=== PATIENT | male | born 1955 | race Caucasian/White ===

== ENCOUNTER 2018-05-14 09:25 | Emergency (ER) | payer OTHER ==
[2018-05-14] MEDS ORDERED: NA CHLORIDE 0.9% 1,000 ML ONE (10:02)
[2018-05-14] MEDS ORDERED: BISACODYL 10 MG RECTAL SUPP ONE (10:02)
[2018-05-14] MEDS ORDERED: LACTULOSE 20 GM/30 ML UCUP ONE (10:03)
[2018-05-14 10:14] LABS: Absolute Lymphocytes (CBC) 1.4 K/uL (0.7-4.9); Absolute Monocytes 0.6 K/uL (0.1-1.3); Absolute Neutrophil 5.1 K/uL (1.8-8.0); Basophils % 0.5 % (0-1.3); Eosinophils % 1.1 % (0-4.4); Hematocrit 42.8 % (39.6-49.0); Lymphocytes % 19.2 % (15.3-44.8); MPV 7.7 fL (7.6-11.3); Monocytes % 8.3 % (3.3-12.3); RBC Red Blood Cell Count 5.01 M/uL (4.33-5.43)
[2018-05-14 10:20] LABS: Albumin 3.8 g/dL (3.4-5.0); Bilirubin Direct 0.2 mg/dL (0-0.2); Bilirubin Total 0.5 mg/dL (0.2-1.0); Potassium 3.8 mmol/L (3.5-5.1)
--- NOTE | 2018-05-14 11:36 | RAD REPORT ---
EXAM DESCRIPTION: CT - Abdomen Pelvis Wo Contrast - 05/14/2018 11:25 am CLINICAL HISTORY: Abdominal pain, constipation, pain medication COMPARISON: None. TECHNIQUE: Axial [address] imaging of the abdomen and pelvis was performed without IV contrast. No IV contrast was given because of allergy, abnormal renal function, patient refusal or physician re quest. Oral contrast was given. All CT scans are performed using dose optimization technique as appropriate and may include automated exposure control or mA/KV adjustment according to patient size. FINDINGS: No suspicious findings in the lung bases. The liver, spleen and pancreas show no suspicious findings on non-contrast imaging. Gallbladder and b iliary tree are also without suspicious finding. No hydronephrosis or suspicious renal mass. Punctate 1 mm calyx calcification noted left kidney. No s ignificant adrenal finding. Isodense renal masses and pyelonephritis cannot be excluded in the absenc e of IV contrast. The urinary bladder is without significant finding. Prostate gland is prominent. No invasion into adjacent structures. No gastric dilatation or wall thickening. No acute small bowel finding. Fatty ileocecal valve is note d. There is no appendicitis. No abnormal retained stool volume in the colon. There is mild circumfere ntial wall thickening of the distal rectum. This is nonspecific. A mild proctitis would be possible. This may be artifact of incomplete distention. The perirectal fat shows no acute finding. No free air, free fluid or inflammatory stranding. No mass or bulky lymphadenopathy. Fat filled ingu inal hernias are present bilaterally. There is a small fat only umbilical hernia. No suspicious bony findings. IMPRESSION: No constipation or abnormal retained stool volume. [place] of the distal rectum are mildly prominent. A mild proctitis would be possible. The surrounding fat shows no acute component. Punctate left renal calyx calculi. No acute finding. Isodense masses and pyelonephritis are not ex cluded on stone protocol imaging. Full assessment is limited is the absence of IV contrast.
[2018-05-14] MEDS ORDERED: METRONIDAZOLE 500mg IVPB 500 MG/100 ML BAG IV ONE (11:51)
[2018-05-14] MEDS ORDERED: CIPROFLOXACIN 400mg IV 400 MG/200 ML BAG IV ONE (11:51)
--- NOTE | 2018-05-14 11:56 | EDPHYS ---
Physician Documentation [facility] Name: Edinson Rowell Age: 63 yrs Sex: Male : 1955 Arrival Date: 05/14/2018 Time: 09:28 Bed 20 Private MD: ED Physician Santy Zheng HPI: 05/14 09:40 This 63 yrs old Male presents to ER via Unassigned with complaints of alexa Constipation. 09:40 The patient presents with abdominal pain in the lower abdomen, right lower quadrant, in alexa the left lower quadrant. Onset: The symptoms/episode began/occurred 3 day(s) ago. The symptoms do not radiate. Associated signs and symptoms: none. The symptoms are described as crampy, dull. Severity of pain: At its worst the pain was mild moderate in the emergency department the pain is unchanged. The patient has experienced similar episodes in the past, a few times. Historical: - Allergies: 09:42 PENICILLINS; ss 09:42 Codeine; ss 09:42 tramadol; ss - PMHx: 09:42 Hypertension; constipation; Hypothyroidism; ss - Immunization history:: Adult Immunizations up to date. - Social history:: Smoking status: Patient/guardian denies using tobacco. - Family history:: not pertinent. - Ebola Screening: : Patient denies exposure to infectious person Patient denies travel to an Ebola-affected area in the 21 days before illness onset. ROS: 09:40 Constitutional: Negative for fever, chills, and weight loss, Eyes: Negative for injury, alexa pain, redness, and discharge, ENT: Negative for injury, pain, and discharge, Neck: Negative for injury, pain, and swelling, Cardiovascular: Negative for chest pain, palpitations, and edema, Respiratory: Negative for shortness of breath, cough, wheezing, and pleuritic chest pain, Back: Negative for injury and pain, : Negative for injury, bleeding, discharge, and swelling, MS/Extremity: Negative for injury and deformity, Skin: Negative for injury, rash, and discoloration, Neuro: Negative for headache, weakness, numbness, tingling, and seizure, Psych: Negative for depression, anxiety, suicide ideation, homicidal ideation, and hallucinations, Allergy/Immunology: Negative for hives, rash, and allergies, Endocrine: Negative for neck swelling, polydipsia, polyuria, polyphagia, and marked weight changes, Hematologic/Lymphatic: Negative for swollen nodes, abnormal bleeding, and unusual bruising. 09:40 Abdomen/GI: Positive for abdominal pain, constipation, of the right lower quadrant and left lower quadrant. Exam: 09:40 Constitutional: This is a well developed, well nourished patient who is awake, alert, alexa and in no acute distress. Head/Face: Normocephalic, atraumatic. Eyes: Pupils equal round and reactive to light, extra-ocular motions intact. Lids and lashes normal. Conjunctiva and sclera are non-icteric and not injected. Cornea within normal limits. Periorbital areas with no swelling, redness, or edema. ENT: Nares patent. No nasal discharge, no septal abnormalities noted. Tympanic membranes are normal and external auditory canals are clear. Oropharynx with no redness, swelling, or masses, exudates, or evidence of obstruction, uvula midline. Mucous membranes moist. Neck: Trachea midline, no thyromegaly or masses palpated, and no cervical lymphadenopathy. Supple, full range of motion without nuchal rigidity, or vertebral point tenderness. No Meningismus. Chest/axilla: Normal chest wall appearance and motion. Nontender with no deformity. No lesions are appreciated. Cardiovascular: Regular rate and rhythm with a normal S1 and S2. No gallops, murmurs, or rubs. Normal PMI, no JVD. No pulse deficits. Respiratory: Lungs have equal breath sounds bilaterally, clear to auscultation and percussion. No rales, rhonchi or wheezes noted. No increased work of breathing, no retractions or nasal flaring. Back: No spinal tenderness. No costovertebral tenderness. Full range of motion. Skin: Warm, dry with normal turgor. Normal color with no rashes, no lesions, and no evidence of cellulitis. MS/ Extremity: Pulses equal, no cyanosis. Neurovascular intact. Full, normal range of motion. Neuro: Awake and alert, GCS 15, oriented to person, place, time, and situation. Cranial nerves II-XII grossly intact. Motor strength 5/5 in all extremities. Sensory grossly intact. Cerebellar exam normal. Normal gait. Psych: Awake, alert, with orientation to person, place and time. Behavior, mood, and affect are within normal limits. 09:40 Abdomen/GI: Inspection: abdomen appears normal, Bowel sounds: normal, Palpation: moderate abdominal tenderness, in the right lower quadrant and left lower quadrant, Liver: no appreciated palpable abnormalities, Hernia: not appreciated. Vital Signs: 09:42 BP 164 / 83; Pulse 89; Resp 15; Temp 98.5(O); Pulse Ox 99% on R/A; Weight 99.79 kg; ss Height 5 ft. 9 in. (175.26 cm); Pain 1/10; 11:10 BP 152 / 85; Pulse 91; Resp 18; Pulse Ox 96% on R/A; Pain 1/10; em 12:30 BP 152 / 92; Pulse 87; Resp 18; Pulse Ox 99% on R/A; em 14:19 BP 151 / 97; Pulse 79; Resp 18; Pulse Ox 99% on R/A; em 09:42 Body Mass Index 32.49 (99.79 kg, 175.26 cm) ss MDM: 09:30 Patient medically screened. [facility] 09:42 Data reviewed: vital signs, nurses notes, lab test result(s), radiologic studies, CT alexa scan. 03 09:38 Order name: Basic Metabolic Panel; Complete Time: 10:57 [facility] 05/14 09:38 Order name: CBC with Diff; Complete Time: 10:57 [facility] 05/14 09:38 Order name: Creatinine for Radiology; Complete Time: 10:57 [facility] 05/14 09:38 Order name: Hepatic Function; Complete Time: 10:57 [facility] 05/14 09:38 Order name: Lipase; Complete Time: 10:57 [facility] 05/14 09:38 Order name: CT Abd/Pelvis - Without Cont: gastrograffin only; Complete Time: 11:37 [facility] 05/14 11:38 Interpretation: Abnormal. [facility] 05/14 09:38 Order name: IV Saline Lock; Complete Time: 09:48 [facility] 05/14 09:38 Order name: Labs collected and sent; Complete Time: 09:48 [facility] Administered Medications: 10:02 Drug: NS 0.9% 1000 ml Route: IV; Rate: 1 bolus; Site: right antecubital; em 11:00 Follow up: IV Status: Completed infusion; IV Intake: 1000ml em 10:02 Drug: Lactulose 45 grams Volume: 45 ml; Route: PO; em 11:00 Follow up: Response: No adverse reaction; Marked relief of symptoms em 10:02 Drug: Dulcolax Suppository 10 mg Route: NM; em 11:00 Follow up: Response: No adverse reaction em 12:10 Drug: Flagyl 500 mg Volume: 100 ml; Route: IVPB; Rate: 200 ml/hr; Infused Over: 30 em mins; Site: right antecubital; 13:10 Follow up: Response: No adverse reaction; IV Status: Completed infusion; IV Intake: em 100ml 13:10 Drug: Cipro 400 mg Volume: 200 ml; Route: IVPB; Infused Over: 60 mins; Site: right em antecubital; 14:21 Follow up: Response: No adverse reaction; IV Status: Completed infusion; IV Intake: em 200ml Disposition: 05/14/18 11:56 Discharged to Home. Impression: Constipation, Left sided colitis - proctitis, Abdominal tenderness. - Condition is Stable. - Discharge Instructions: Abdominal Pain, Adult, Constipation, Adult, How to Take a Sitz Bath, Constipation, Adult, [id number], Abdominal Pain, Adult, [id number], Colitis. - Prescriptions for Colace 100 mg Oral Tablet - take 1 tablet by ORAL route every 12 hours; 14 tablet. Flagyl 500 mg Oral Tablet - take 1 tablet by ORAL route every 8 hours for 7 days; 21 tablet. Cipro 500 mg Oral Tablet - take 1 tablet by ORAL route every 12 hours for 7 days; 14 tablet. - Medication Reconciliation Form, Thank You Letter, Antibiotic Education, Prescription Opioid Use form. - Follow up: Private Physician; When: 2 - 3 days; Reason: Recheck today's complaints, Continuance of care, Re-evaluation by your physician. Follow up: Megha Miranda; When: 1 - 2 days; Reason: Recheck today's complaints, Re-evaluation by your physician. - Problem is new. - Symptoms have improved. Signatures: Dispatcher [employer] Santy Lee MD MD cha Munoz, Edgar, HIGHWAY MAINTENANCE WORKER HIGHWAY MAINTENANCE WORKER Araceli Burroughs RN RN ss Corrections: (The following items were deleted from the chart) 14:22 11:56 05/14/2018 11:56 Discharged to Home. Impression: Constipation; Left sided colitis em - proctitis; Abdominal tenderness. Condition is Stable. Discharge Instructions: Constipation, Adult, Constipation, Adult, [id number], How to Take a Sitz Bath, Colitis. Prescriptions for Colace 100 mg Oral Tablet - take 1 tablet by ORAL route every 12 hours; 14 tablet, Flagyl 500 mg Oral Tablet - take 1 tablet by ORAL route every 8 hours for 7 days; 21 tablet, Cipro 500 mg Oral Tablet - take 1 tablet by ORAL route every 12 hours for 7 days; 14 tablet. and Forms are Medication Reconciliation Form, Thank You Letter, Antibiotic Education, Prescription Opioid Use. Follow up: Private Physician; When: 2 - 3 days; Reason: Recheck today's complaints, Continuance of care, Re-evaluation by your physician. Follow up: Megha Miranda; When: 1 - 2 days; Reason: Recheck today's complaints, Re-evaluation by your physician. Problem is new. Symptoms have improved. alexa
--- NOTE | 2018-05-14 11:56 | ER ---
Nurse's Notes [facility] Name: Edinson Rowell Age: 63 yrs Sex: Male : 1955 Arrival Date: 05/14/2018 Time: 09:28 Bed 20 Private MD: Diagnosis: Constipation;Left sided colitis-proctitis;Abdominal tenderness Presentation: 05/14 09:30 Presenting complaint: Patient states: Pt reports constipation x 3 days. Pt recently had ss oral/ sinus surgery and has been taking hydrocodone. Last BM was reportedly 3 days ago. Transition of care: patient was not received from another setting of care. Onset of symptoms was April 12, 2018. Risk Assessment: Do you want to hurt yourself or someone else? Patient reports no desire to harm self or others. Initial Sepsis Screen: Does the patient meet any 2 criteria? No. Patient's initial sepsis screen is negative. Does the patient have a suspected source of infection? No. Patient's initial sepsis screen is negative. Care prior to arrival: None. 09:30 Method Of Arrival: Ambulatory 09:30 Acuity: KENNETH 3 ss Historical: - Allergies: 09:42 PENICILLINS; ss 09:42 Codeine; ss 09:42 tramadol; ss - PMHx: 09:42 Hypertension; constipation; Hypothyroidism; ss - Immunization history:: Adult Immunizations up to date. - Social history:: Smoking status: Patient/guardian denies using tobacco. - Family history:: not pertinent. - Ebola Screening: : Patient denies exposure to infectious person Patient denies travel to an Ebola-affected area in the 21 days before illness onset. Screenin:35 Abuse screen: Denies threats or abuse. Nutritional screening: No deficits noted. em Tuberculosis screening: No symptoms or risk factors identified. Fall Risk None identified. Assessment: 09:45 General: Appears in no apparent distress. uncomfortable, Behavior is calm, cooperative, em anxious. Pain: Complains of pain in left lower quadrant and right lower quadrant Pain currently is 1 out of 10 on a pain scale. Quality of pain is described as crampy, pressure. Neuro: Level of Consciousness is awake, alert, obeys commands, Oriented to person, place, time, situation. Cardiovascular: Capillary refill < 3 seconds Patient's skin is warm and dry. Respiratory: Airway is patent Respiratory effort is even, unlabored, Respiratory pattern is regular, symmetrical. GI: Abdomen is round Last BM was May 11, 2018. Bowel sounds present X 4 quads. Abd is soft and non tender X 4 quads. Reports constipation, Patient currently denies nausea, vomiting. Derm: Skin is intact, is healthy with good turgor, Skin is pink, warm \T\ dry. Musculoskeletal: Range of motion: intact in all extremities. 09:48 General: The previous assessment is accurate, call light remains within reach. . ss 10:30 Reassessment: ambulated to restroom, will attempt to have BM. em 11:02 Reassessment: ambulated to restroom, pt reports having a small BM, pending CT. em 12:00 Reassessment: Patient appears in no apparent distress at this time. Patient and/or em family updated on plan of care and expected duration. Pain level reassessed. Patient is alert, oriented x 3, equal unlabored respirations, skin warm/dry/pink. pending completion of IV ABX Patient states feeling better. 13:00 Reassessment: Patient appears in no apparent distress at this time. Patient and/or em family updated on plan of care and expected duration. Pain level reassessed. Patient is alert, oriented x 3, equal unlabored respirations, skin warm/dry/pink. Patient states feeling better. 13:58 Reassessment: ambulated to restroom, has had 4 small BM, pending completion of IV ABX. em Vital Signs: 09:42 BP 164 / 83; Pulse 89; Resp 15; Temp 98.5(O); Pulse Ox 99% on R/A; Weight 99.79 kg; Height 5 ft. 9 in. (175.26 cm); Pain 1/10; 11:10 BP 152 / 85; Pulse 91; Resp 18; Pulse Ox 96% on R/A; Pain 1/10; em 12:30 BP 152 / 92; Pulse 87; Resp 18; Pulse Ox 99% on R/A; em 14:19 BP 151 / 97; Pulse 79; Resp 18; Pulse Ox 99% on R/A; em 09:42 Body Mass Index 32.49 (99.79 kg, 175.26 cm) ED Course: 09:28 Patient arrived in ED. as 09:30 Santy Zheng MD is Attending Physician. alexa 09:30 Kelvin Copeland LVN is Primary Nurse. em 09:40 Patient has correct armband on for positive identification. Bed in low position. Call em light in reach. Side rails up X2. Adult w/ patient. Pulse ox on. NIBP on. 09:41 Triage completed. ss 09:42 Arm band placed on right wrist. ss 09:45 Initial lab(s) drawn, by me, sent to lab. Inserted saline lock: 20 gauge in right em antecubital area, using aseptic technique. Blood collected. 11:24 CT completed. Patient tolerated procedure well. Patient moved back from CT. bq 11:24 CT Abd/Pelvis - Without Cont: gastrograffin only In Process Unspecified. EDMS 11:55 Megha Miranda MD is Referral Physician. alexa 14:20 No provider procedures requiring assistance completed. IV discontinued, intact, em bleeding controlled, No redness/swelling at site. Pressure dressing applied. Administered Medications: 10:02 Drug: NS 0.9% 1000 ml Route: IV; Rate: 1 bolus; Site: right antecubital; em 11:00 Follow up: IV Status: Completed infusion; IV Intake: 1000ml em 10:02 Drug: Lactulose 45 grams Volume: 45 ml; Route: PO; em 11:00 Follow up: Response: No adverse reaction; Marked relief of symptoms em 10:02 Drug: Dulcolax Suppository 10 mg Route: IA; em 11:00 Follow up: Response: No adverse reaction em 12:10 Drug: Flagyl 500 mg Volume: 100 ml; Route: IVPB; Rate: 200 ml/hr; Infused Over: 30 em mins; Site: right antecubital; 13:10 Follow up: Response: No adverse reaction; IV Status: Completed infusion; IV Intake: em 100ml 13:10 Drug: Cipro 400 mg Volume: 200 ml; Route: IVPB; Infused Over: 60 mins; Site: right em antecubital; 14:21 Follow up: Response: No adverse reaction; IV Status: Completed infusion; IV Intake: em 200ml Intake: 11:00 IV: 1000ml; Total: 1000ml. em 13:10 IV: 100ml; Total: 1100ml. em 14:21 IV: 200ml; Total: 1300ml. em Outcome: 11:56 Discharge ordered by . alexa 14:20 Discharged to home ambulatory. em 14:20 Condition: good 14:20 Discharge instructions given to patient, family, Instructed on discharge instructions, follow up and referral plans. no drinking with medication, medication usage, Demonstrated understanding of instructions, follow-up care, medications, Prescriptions given X 3. 14:22 Patient left the ED. em Signatures: Dispatcher [employer] EDSanty Wilson MD MD cha Quilty, Betty bq Munoz, Edgar, SERVICE PORTER SERVICE PORTER em Dayna Hernandez Shelby, BLAKE RN ss Corrections: (The following items were deleted from the chart) 11:18 11:02 Reassessment: ambulated to restroom, pt reports having a small BM, pending CT em em
== END 2018-05-14 14:22 | disposition home or self-care (01) ==
LOC: ER 09:25
DX: K59.00 Constipation, unspecified (principal); K51.50 Left sided colitis without complications; K62.89 Other specified diseases of anus and rectum; I10 Essential (primary) hypertension; Z88.0 Allergy status to penicillin; Z88.5 Allergy status to narcotic agent; Z88.6 Allergy status to analgesic agent
CPT/HCPCS: 36415; 74176; 80048; 80076; 83690; 85025; 96361; 96365; 96367; 99284; J0744; J7030

== ENCOUNTER 2022-08-26 13:30 | Emergency (ER) | payer OTHER ==
--- OUTSIDE RECORDS SUMMARY | 2022-08-26 13:34 | XMS REPORT | Continuity of Care Document ---
:1955 Author Organization [facility] t Address [address] [facility] [address] [place] [id number] Care Team Providers Name Role Phone Mckayla Cline MD Primary Care Physician [phone] Salomón URIBE, Jeannette Adams Attending Clinician MCKAYLA CLINE Attending Clinician Unavailable GIOVANY MORALES Attending Clinician Unavailable Mckayla Cline MD Attending Clinician [phone] Con Poole MD Attending Clinician MCKAYLA CLINE Attending Clinician Unavailable CHRIS MCCLURE Attending Clinician Unavailable Giovany Morales MD Attending Clinician Gerardo Bateman MD Attending Clinician Payers Payer Name Policy Type Policy Number Effective Date Expiration Date S sam MEDICARE PART A [id number] 2022 \T\ B - MEDICARE 00:00:00 MEDICARE A B [id number] 2018 00:00:00 [employer] INDEMNITY [id number] 2018 NON CONTR 00:00:00 Problems Condition Condition Condition Status Onset Resolution Last Treating Co mments Source Name Details Category Date Date Treatment Clinician Date Overweight Overweight Disease Active [facility] 7-21 [facility] 00:00: of 00 Medicin e Chronic Chronic Disease Active 2018-03 [facility] sinusitis sinusitis 0-19 [facility] 00:00: of 00 Medicin e Post-traum Post-traum Disease Active Justina hanley [facility] 5-15 [place] osteoarthr osteoarthr 00:00: of itis of itis of 00 Medicin left ankle left ankle e Post-traum Post-traum Disease Active Justina humberto [facility] 5-15 [place] osteoarthr osteoarthr 00:00: of itis of itis of 00 Medicin left ankle left ankle e Essential Essential Disease Active [facility] hypertensi hypertensi 4-27 [facility] on on 00:00: of 00 Medicin e Family Family Disease Active [facility] history of history of 9-29 [facility] llege nonmelanom nonmelanom 00:00: of a skin a skin 00 Medicin cancer cancer e Family Family Disease Active [facility] history of history of 9-29 Co llege nonmelanom nonmelanom 00:00: of a skin a skin 00 Medicin cancer cancer e Left ankle Left ankle Disease Active Justina hanley pain pain 5-10 [place] 00:00: of 00 Medicin e Sleep Sleep Disease Active [facility] apnea apnea 4-19 [place] 00:00: of 00 Medicin e Mixed Mixed Disease Active [facility] hyperlipid hyperlipid Co llege emia emia of Medicin e HYPOTHYROI HYPOTHYROI Disease Active [facility] [employer] of Medicin e Allergies, Adverse Reactions, Alerts Allergy Allergy Status Severity Reaction(s) Onset Inactive Treating Comm ents Source Name Type Date Date Clinician Tramadol Propensi Active Rash [facility] ty to 5-30 College adverse 00:00: of reaction 00 Medicin s to e drug Codeine Propensi Active [facility] Sulfate ty to 2 College adverse 00:00: of reaction 00 Medicin s to e drug Penicill Propensi Active Anaphylaxis Justina hanley ins ty to 219 College adverse 00:00: of reaction 00 Medicin s to e drug Social History Social Habit Start Date Stop Date Quantity Comments Source Exposure to Not sure [facility] Colle ehsan SARS-CoV-2 (event) of Med icine History of tobacco Cigarette Smoker [facility] use of Medicine History [facility] ge Alcohol Frequency of Medi cine History [facility] ge Alcohol Std Drinks of Med icine History [facility] Alcohol Binge of Medicine Gender identity [facility] Alcohol intake 2022-08-25 2022-08-25 .29 /d [facility] Col lege 00:00:00 00:00:00 of Medicine History of Social 2022-01-12 2022-01-12 [facility] function 00:00:00 00:00:00 of Medicine Tobacco use and 2021-09-23 2021-09-23 Smokeless tobacco [facility] exposure 00:00:00 00:00:00 non-user of Medicine Cigarette 2021-09-23 2021-09-23 [facility] pack-years 00:00:00 00:00:00 of Medicine Alcohol Comment 2020-10-28 2020-10-28 very occasional [facility] [employer] 00:00:00 00:00:00 use of Medicine Sex [birth year] [facility] 00[facility] Smoking Status Start Date Stop Date Source Tobacco smoking consumption [facility] Never smoked tobacco [facility] ege of Medicine Medications Ordered Filled Start Stop Current Ordering Indication Dosage Frequency Signature Comments Components Source Medication Medication Date Date Medication? Clinician (SIG) Name Name methylPREDN 2022- No [id number] 80mg 80 mg, [facility] ISolone 08-25 9100 [facility] acetate 18:13: 18:13 cular, of (DEPO-MEDRO 00 :00 Once PRN Medi [place] L) 40 MG/ML Procedure, e injection 1 dose, 80 mg Starting on 08/25/22 at 1313, Until 08/25/22 at 1313 bupivacaine 2022- No [id number] 2mL 2 mL, [facility] (MARCAINE) 08-25 9100 [facility] 0.5 % 18:13: 18:13 cular, of injection 2 00 :00 Once PRN Medi [place] mL Procedure, e 1 dose, Starting on 08/25/22 at 1313, Until 08/25/22 at 1313 lidocaine 2022- No [id number] 2mL 2 mL, [facility] (preservati 08-25- 9100 [facility] C ollege ve-free) 1 18:13: 18:13 cular, of % injection 00 :00 Once PRN Medi [place] 2 mL Procedure, e 1 dose, Starting on Wed08/25/22 at 1313, Until Wed08/25/22 at 1313 aspirin 81 Yes 81mg Take 1 [facility] tablet 6-20 Tablet by Colle ge 10:55: mouth of 11 daily. Medicin e docusate Yes 100mg Take 1 [facility] sodium 6-20 Capsule by [place] (COLACE) 10:55: mouth two of 100 MG 11 times Medicin capsule daily. e Multiple Yes Take by [facility] Vitamins-Mi 6-20 mouth. [facility] nerals 10:55: of (CENTRUM 11 Medicin ADULTS OR) e meloxicam Yes 1 daily [facility] (MOBIC) 15 6-07 with food [facility] MG tablet 00:00: or milk. of 00 Medicin e cyclobenzap Yes 10mg Take 1 [facility] rine 2-22 Tablet by [place] (FLEXERIL) 00:00: mouth 3 of 10 MG 00 times Medicin tablet daily as e needed for Muscle spasms. lorazepam Yes .5mg Take 1 [facility] (ATIVAN) 1-18 [facility] of 00 every 12 Medicin hours as e needed for Anxiety. tadalafil Yes Take 1 [facility] (CIALIS) 10 1-18 pill at Colle ge MG tablet 00:00: least 60 of 00 minutes Medicin prior to e sexual activity aspirin 81 2021-03 Yes 81mg Take 81 mg [facility] MG tablet 1-07 by mouth Colleg e 12:48: daily. of 43 Medicin e docusate 2021-03 Yes 100mg Take 100 [facility] sodium 1-07 mg by [place] (COLACE) 12:48: mouth two of 100 MG 43 times Medicin capsule daily. e SUPER B 2021-03 Yes Take by [facility] COMPLEX/C 1-07 mouth. College OR 12:48: of 43 Medicin e Multiple 2021-03 Yes Take by [facility] Vitamins-Mi 1-07 mouth. [place] n[facility] 12:48: of [facility] Medicin ADULTS OR) e SUPER B 2021-03 Yes Take by [facility] COMPLEX/C 1-07 mouth. College OR 12:48: of 43 Medicin e metronidazo 2021-0 Yes [id number] Apply [facility] le 9-21 topically [place] (METROCREAM 00:00: to face of ) 0.75 % 00 twice a Medicin cream day as e needed metronidazo 2021-0 Yes [id number] Apply [facility] le 9-21 topically [place] (METROCREAM 00:00: to face of ) 0.75 % 00 twice a Medicin cream day as e needed metronidazo 2021-0 Yes [id number] Apply [facility] le 9-21 topically [place] (METROCREAM 00:00: to face of ) 0.75 % 00 twice a Medicin cream day as e needed aspirin 81 2021-0 Yes 81mg Take 81 mg [facility] MG tablet 7-19 by mouth Colleg e 07:56: daily. of 36 Medicin e docusate 0 Yes 100mg Take 100 [facility] sodium 7-19 mg by College (COLACE) 07:56: mouth two of 100 MG 36 times Medicin capsule daily. e SUPER B 0 Yes Take by [facility] COMPLEX/C 7-19 mouth. College OR 07:56: of 36 Medicin e Multiple 0 Yes Take by [facility] Vitamins-Mi 7-19 mouth. [place] nerals 07:56: of ([facility] 36 Medicin ADULTS OR) e aspirin 81 2021-0 Yes 81mg Take 81 mg [facility] MG tablet 7-19 by mouth Colleg e 07:56: daily. of 36 Medicin e docusate 0 Yes 100mg Take 100 [facility] sodium 7-19 mg by College (COLACE) 07:56: mouth two of 100 MG 36 times Medicin capsule daily. e SUPER B 2021-0 Yes Take by [facility] COMPLEX/C 7-19 mouth. College OR 07:56: of 36 Medicin e Multiple 2021-0 Yes Take by [facility] Vitamins-Mi 7-19 mouth. Colleg e nerals 07:56: of ([facility] 36 Medicin ADULTS OR) e aspirin 81 0 Yes 81mg Take 81 mg [facility] MG tablet 7-19 by mouth [facility] 07:56: daily. of 36 Medicin e docusate 0 Yes 100mg Take 100 [facility] sodium 7-19 mg by [place] (COLACE) 07:56: mouth two of 100 MG 36 times Medicin capsule daily. e SUPER B 0 Yes Take by [facility] COMPLEX/C 7-19 mouth. College OR 07:56: of 36 Medicin e Multiple 0 Yes Take by [facility] Vitamins-Mi 7-19 mouth. [facility] moser nerals 07:56: of (CENTRUM 36 Medicin ADULTS OR) e olmesartan- 0 Yes TAKE 1 [facility] hydrochloro 7-19 TABLET BY Col lege thiazide 00:00: MOUTH of (BENICAR 00 EVERY DAY Medici n HCT) 40-25 e MG per tablet levothyroxi 0 Yes TAKE 1 [facility] ne 7-19 TABLET BY [place] (SYNTHROID) 00:00: MOUTH of 175 MCG 00 EVERY DAY Medicin tablet e escitalopra 0 Yes 10mg Take 1 [facility] (LEXAPRO) 7-19 Tablet by Col [facility]ge 10 MG 00:00: mouth of tablet 00 daily. Medicin e olmesartan- 0 Yes TAKE 1 [facility] hydrochloro 7-19 TABLET BY [facility] thiazide 00:00: MOUTH of (BENICAR 00 EVERY DAY Medici n HCT) 40-25 e MG per tablet levothyroxi 2021-0 Yes TAKE 1 [facility] ne 7-19 TABLET BY [place] (SYNTHROID) 00:00: MOUTH of 175 MCG 00 EVERY DAY Medicin tablet e escitalopra 2021-0 Yes 10mg Take 1 [facility] (LEXAPRO) 7-19 Tablet by Col lege 10 MG 00:00: mouth of tablet 00 daily. Medicin e olmesartan- 0 Yes TAKE 1 [facility] hydrochloro 7-19 TABLET BY [facility] thiazide 00:00: MOUTH of (BENICAR 00 EVERY DAY Medici n HCT) 40-25 e MG per tablet levothyroxi 2021-0 Yes TAKE 1 [facility] ne 7-19 TABLET BY [place] (SYNTHROID) 00:00: MOUTH of 175 MCG 00 EVERY DAY Medicin tablet e escitalopra 2021-0 Yes 10mg Take 1 [facility] (LEXAPRO) 7-19 Tablet by [facility] 10 MG 00:00: mouth of tablet 00 daily. Medicin e olmesartan- 2021-0 Yes TAKE 1 [facility] hydrochloro 7-19 TABLET BY [facility] thiazide 00:00: MOUTH of (BENICAR 00 EVERY DAY Medici n HCT) 40-25 e MG per tablet levothyroxi 2021-0 Yes TAKE 1 [facility] ne 7-19 TABLET BY [place] (SYNTHROID) 00:00: MOUTH of 175 MCG 00 EVERY DAY Medicin tablet e escitalopra 2021-0 Yes 10mg Take 1 [facility] (LEXAPRO) 7-19 Tablet by [facility] 10 MG 00:00: mouth of tablet 00 daily. Medicin e olmesartan- 2021-0 Yes TAKE 1 [facility] hydrochloro 7-19 TABLET BY [facility] thiazide 00:00: MOUTH of (BENICAR 00 EVERY DAY Medici n HCT) 40-25 e MG per tablet levothyroxi 2021-0 Yes TAKE 1 [facility] ne 7-19 TABLET BY [place] (SYNTHROID) 00:00: MOUTH of 175 MCG 00 EVERY DAY Medicin tablet e escitalopra 2021-0 Yes 10mg Take 1 [facility] (LEXAPRO) 7-19 Tablet by Col [facility] 10 MG 00:00: mouth of tablet 00 daily. Medicin e ciprofloxac 2021-0 2- No 500mg Take 1 [facility] (CIPRO) 09-23-30 Tablet by Col lege 500 MG 00:00: 04:59 mouth two of tablet 00 :00 times Medicin daily for e 10 days. ciprofloxac 2021-0 2021- No 500mg Take 1 [facility] in (CIPRO) 09-23-30 Tablet by [facility]ge 500 MG 00:00: 04:59 mouth two of tablet 00 :00 times Medicin daily for e 10 days. escitalopra 2-0 2- No 10mg Take 1 [place] [facility] m (LEXAPRO) 4-27 - Tablet by Co llege 10 MG 00:00: 00:00 mouth of tablet 00 :00 daily. Medicin e lorazepam 2021-0 Yes .5mg Take 1 [facility] (ATIVAN) 3-12 Tablet by Colleg e 0.5 MG 00:00: mouth of tablet 00 every 12 Medicin hours as e needed for Anxiety. lorazepam 2021-0 Yes .5mg Take 1 [facility] (ATIVAN) 3-12 Tablet by Colleg e 0.5 MG 00:00: mouth of tablet 00 every 12 Medicin hours as e needed for Anxiety. lorazepam 2-0 Yes .5mg Take 1 [facility] (ATIVAN) 3-12 Tablet by Colleg e 0.5 MG 00:00: mouth of tablet 00 every 12 Medicin hours as e needed for Anxiety. lorazepam 2021-0 Yes .5mg Take 1 [facility] (ATIVAN) 3-12 Tablet by Colleg e 0.5 MG 00:00: mouth of tablet 00 every 12 Medicin hours as e needed for Anxiety. atorvastati 2021-0 Yes TAKE ONE [facility] (LIPITOR) 1-17 (1) College 10 MG 00:00: TABLET(S) of tablet 00 BY MOUTH Medicin DAILY. e atorvastati 2021-0 Yes TAKE ONE [facility] (LIPITOR) 1-17 (1) College 10 MG 00:00: TABLET(S) of tablet 00 BY MOUTH Medicin DAILY. e atorvastati 2021-0 Yes TAKE ONE [facility] n (LIPITOR) 1-17 (1) College 10 MG 00:00: TABLET(S) of tablet 00 BY MOUTH Medicin DAILY. e atorvastati 2021-0 Yes TAKE ONE [facility] n (LIPITOR) 1-17 (1) College 10 MG 00:00: TABLET(S) of tablet 00 BY MOUTH Medicin DAILY. e aspirin 81 2020-0 Yes 81mg Take 81 mg [facility] MG tablet 8-23 by mouth [facility] e 13:44: daily. of 13 Medicin e docusate 2020-0 Yes 100mg Take 100 [facility] sodium 8-23 mg by College (COLACE) 13:44: mouth two of 100 MG 13 times Medicin capsule daily. e SUPER B 2020-0 Yes Take by [facility] COMPLEX/C 8-23 mouth. College OR 13:44: of 13 Medicin e Multiple Yes Take by [facility] Vitamins-Mi 8-23 mouth. Colleg e nerals 13:44: of (CENTRUM 13 Medicin ADULTS OR) e aspirin 81 Yes 81mg Take 81 mg [facility] MG tablet 7-20 by mouth Colleg e 08:10: daily. of 03 Medicin e docusate Yes 100mg Take 100 [facility] sodium 7-20 mg by [place] (COLACE) 08:10: mouth two of 100 MG 03 times Medicin capsule daily. e SUPER B Yes Take by [facility] COMPLEX/C 7-20 mouth. College OR 08:10: of 03 Medicin e Multiple Yes Take by [facility] Vitamins-Mi 7-20 mouth. [place] [facility] 08:10: of (CENTRUM 03 Medicin ADULTS OR) e levothyroxi Yes TAKE 1 [facility] ne 7-20 TABLET BY [place] (SYNTHROID) 00:00: MOUTH of 175 MCG 00 EVERY DAY Medicin tablet e olmesartan- Yes TAKE 1 [facility] hydrochloro 7-20 TABLET BY [facility] thiazide 00:00: MOUTH of (BENICAR 00 EVERY DAY Medici n HCT) 40-25 e MG per tablet levothyroxi Yes TAKE 1 [facility] ne 7-20 TABLET BY [place] (SYNTHROID) 00:00: MOUTH of 175 MCG 00 EVERY DAY Medicin tablet e olmesartan- Yes TAKE 1 [facility] hydrochloro 7-20 TABLET BY [facility] thiazide 00:00: MOUTH of (BENICAR 00 EVERY DAY Medici n HCT) 40-25 e MG per tablet levothyroxi 2021- No TAKE 1 [place] humberto ne 7-20 07-19 TABLET BY [place] (SYNTHROID) 00:00: 00:00 MOUTH of 175 MCG 00 :00 EVERY DAY Medicin tablet e olmesartan- 2021- No TAKE 1 [place] humberto hydrochloro 7-20 07-19 TABLET BY Co llege thiazide 00:00: 00:00 MOUTH of (BENICAR 00 :00 EVERY DAY Medici n HCT) 40-25 e MG per tablet meloxicam Yes 1 daily [facility] (MOBIC) 15 6-28 with food [facility] MG tablet 00:00: or milk. of 00 Medicin e lorazepam 0 Yes .5mg Take 1 [facility] (ATIVAN) 6-28 Tablet by Colleg e 0.5 MG 00:00: mouth of tablet 00 every 12 Medicin hours as e needed for Anxiety. meloxicam 0 Yes 1 daily [facility] (MOBIC) 15 6-28 with food [facility] MG tablet 00:00: or milk. of 00 Medicin e lorazepam 0 Yes .5mg Take 1 [facility] (ATIVAN) 6-28 Tablet by Colleg e 0.5 MG 00:00: mouth of tablet 00 every 12 Medicin hours as e needed for Anxiety. meloxicam 2020-0 Yes 1 daily [facility] (MOBIC) 15 6-28 with food [facility] MG tablet 00:00: or milk. of Medicin e meloxicam 0 Yes 1 daily [facility] (MOBIC) 15 6-28 with food [facility] MG tablet 00:00: or milk. of 00 Medicin e meloxicam 0 Yes 1 daily [facility] (MOBIC) 15 6-28 with food [facility] MG tablet 00:00: or milk. of 00 Medicin e meloxicam 0 Yes 1 daily [facility] (MOBIC) 15 6-28 with food [facility] MG tablet 00:00: or milk. of 00 Medicin e aspirin 81 0 Yes 81mg Take 81 mg [facility] MG tablet 4-21 by mouth [facility] 18:55: daily. of 05 Medicin e docusate Yes 100mg Take 100 [facility] sodium 4-21 mg by [place] (COLACE) 18:55: mouth two of 100 MG 05 times Medicin capsule daily. e SUPER B 0 Yes Take by [facility] COMPLEX/C 4-21 mouth. College OR 18:55: of 05 Medicin e Multiple 0 Yes Take by [facility] Vitamins-Mi 4-21 mouth. [facility] e nerals 18:55: of (CENTRUM 05 Medicin ADULTS OR) e cyclobenzap Yes 10mg Take 1 [facility] rine 4-21 Tablet by [place] (FLEXERIL) 00:00: mouth 3 of 10 MG 00 times Medicin tablet daily as e needed for Muscle spasms. cyclobenzap Yes 10mg Take 1 [facility] rine 4-21 Tablet by [place] (FLEXERIL) 00:00: mouth 3 of 10 MG 00 times Medicin tablet daily as e needed for Muscle spasms. cyclobenzap Yes 10mg Take 1 [facility]ine 4-21 Tablet by [place] (FLEXERIL) 00:00: mouth 3 of 10 MG 00 times Medicin tablet daily as e needed for Muscle spasms. levothyroxi Yes TAKE 1 [facility] ne 2-07 TABLET BY [place] (SYNTHROID) 00:00: MOUTH of 175 MCG 00 EVERY DAY Medicin tablet e levothyroxi 2020- No TAKE 1 [place] [facility] ne 2-07 07-20 TABLET BY [place] (SYNTHROID) 00:00: 00:00 MOUTH of 175 MCG 00 :00 EVERY DAY Medicin tablet e atorvastati 2019-03 Yes TAKE 1 [facility] (LIPITOR) 2-07 TABLET BY Col [facility]ge 10 MG 00:00: MOUTH of tablet 00 EVERY DAY Medicin e atorvastati 2019-03 Yes TAKE 1 [facility] (LIPITOR) 2-07 TABLET BY [facility] 10 MG 00:00: MOUTH of tablet 00 EVERY DAY Medicin e atorvastati 2019-03 Yes TAKE 1 [facility] (LIPITOR) 2-07 TABLET BY [facility] 10 MG 00:00: MOUTH of tablet 00 EVERY DAY Medicin e olmesartan- Yes TAKE 1 [facility] hydrochloro 7-31 TABLET BY [facility] thiazide 00:00: MOUTH of (BENICAR 00 EVERY DAY Medici n HCT) 40-25 e MG per tablet olmesartan- 0 Yes TAKE 1 [facility] hydrochloro 7-31 TABLET BY [facility] thiazide 00:00: MOUTH of (BENICAR 00 EVERY DAY Medici n HCT) 40-25 e MG per tablet olmesartan- 2019-0 2020- No TAKE 1 [place] [facility]to hydrochloro 7-31 07-20 TABLET BY Co llege thiazide 00:00: 00:00 MOUTH of (BENICAR 00 :00 EVERY DAY Medici n HCT) 40-25 e MG per tablet methylPREDN 2020-0 Yes Taper as [facility] ISolone 07-14 directed College (MEDROL 00:00: until of DOSEPACK) 4 00 finished. Med icin MG tablet e methylPREDN 2019-2020- No Taper as [facility] ISolone 07-1421 directed College (MEDROL 00:00: 00:00 until of DOSEPACK) 4 00 :00 finished. Med icin MG tablet e SUPER B 2020-0 Yes Take by [facility] COMPLEX/C -27 mouth. College OR 16:18: of 15 Medicin e Multiple 2020-0 Yes Take by [facility] Vitamins-Mi -27 mouth. Colleg e nerals 16:18: of (CENTRUM 15 Medicin ADULTS OR) e SUPER B 2020-0 Yes Take by [facility] COMPLEX/C -27 mouth. College OR 16:18: of 15 Medicin e Multiple 2020-0 Yes Take by [facility] Vitamins-Mi -27 mouth. Colleg e nerals 16:18: of (CENTRUM 15 Medicin ADULTS OR) e fluticasone 2019- 2020- No 2{spray 2 Sprays [facility] (FLONASE) 05-04 } by Each Colleg e 50 MCG/ACT 16:17: 00:00 Nostril of nasal spray 36 :00 route four Me dicin times e daily. aspirin 81 2020-0 Yes 81mg Take 81 mg [facility] MG tablet 2-27 by mouth Colleg e 16:17: daily. of 33 Medicin e docusate 2020-0 Yes 100mg Take 100 [facility] sodium 2-27 mg by [place] (COLACE) 16:17: mouth two of 100 MG 33 times Medicin capsule daily. e aspirin 81 2020-0 Yes 81mg Take 81 mg [facility] MG tablet 2-27 by mouth Colleg e 16:17: daily. of 33 Medicin e docusate 2020-0 Yes 100mg Take 100 [facility] sodium 2-27 mg by [place] (COLACE) 16:17: mouth two of 100 MG 33 times Medicin capsule daily. e levothyroxi 2020-0 Yes 175ug Take 1 Tab [facility] ne 2-10 by mouth [place] (SYNTHROID) 00:00: daily. of 175 MCG 00 Medicin tablet e levothyroxi 2020-0 Yes 175ug Take 1 Tab [facility] ne 2-10 by mouth [place] (SYNTHROID) 00:00: daily. of 175 MCG 00 Medicin tablet e lorazepam 2018-03 Yes .5mg Take 1 Tab [facility] (ATIVAN) 04-08 by mouth [place] 0.5 MG 00:00: every 12 of tablet 00 hours as Medicin needed for e Anxiety. lorazepam 2018-03 Yes .5mg Take 1 Tab [facility] (ATIVAN) 04-08 by mouth [place] 0.5 MG 00:00: every 12 of tablet 00 hours as Medicin needed for e Anxiety. lorazepam 2018-03- No .5mg Take 1 Tab [facility] (ATIVAN) 04-08 [facility] 00:00 every 12 of tablet 00 :00 hours as Medicin needed for e Anxiety. fluticasone 2018-03 Yes 2{spray 2 Sprays [facility] (FLONASE) 0-18 } by Each [facility] 50 MCG/ACT 17:59: Nostril of nasal spray 33 route four Me dicin times e daily. aspirin 81 2018-03 Yes 81mg Take 81 mg [facility] MG tablet 0-18 by mouth Colleg e 17:54: daily. of 45 Medicin e docusate 2018-03 Yes 100mg Take 100 [facility] sodium 0-18 mg by [place] (COLACE) 17:54: mouth two of 100 MG 45 times Medicin capsule daily. e metronidazo 2018-03- No 500mg Take 500 [facility] le (FLAGYL) 0-18 10-18 mg by [facility] e 500 MG 17:54: 00:00 mouth 3 of tablet 45 :00 times Medicin daily. e ciprofloxac 2018-03- No 500mg Take 500 [facility] in (CIPRO) 0-18 10-18 mg by [place] 500 MG 17:54: 00:00 mouth two of tablet 45 :00 times Medicin daily. e atorvastati Yes 10mg Take 1 Tab [facility] n (LIPITOR) 9-29 by mouth [facility] 10 MG 00:00: daily. of tablet 00 Medicin e atorvastati Yes 10mg Take 1 Tab [facility] n (LIPITOR) 9-29 by mouth [facility] 10 MG 00:00: daily. of tablet 00 Medicin e atorvastati 2019-0 Yes 10mg Take 1 Tab [facility] n (LIPITOR) 9-29 by mouth [facility] 10 MG 00:00: daily. of tablet 00 Medicin e sertraline Yes [id number] TAKE 1 [facility] (ZOLOFT) 25 9-13 TABLET BY Col lege MG tablet 00:00: MOUTH of 00 EVERY DAY Medicin e sertraline Yes [id number] TAKE 1 [facility] (ZOLOFT) 25 9-13 TABLET BY Col [facility]ge MG tablet 00:00: MOUTH of 00 EVERY DAY Medicin e sertraline Yes [id number] TAKE 1 [facility] (ZOLOFT) 25 9-13 TABLET BY Col [facility]ge MG tablet 00:00: MOUTH of 00 EVERY DAY Medicin e sertraline Yes [id number] TAKE 1 [facility] (ZOLOFT) 25 9-13 TABLET BY Col [facility]ge MG tablet 00:00: MOUTH of 00 EVERY DAY Medicin e sertraline Yes [id number] TAKE 1 [facility] (ZOLOFT) 25 9-13 TABLET BY Col [facility]ge MG tablet 00:00: MOUTH of 00 EVERY DAY Medicin e sertraline 0 2021- No [id number] TAKE 1 [facility] (ZOLOFT) 25 9-13 08-23 TABLET BY Co llege MG tablet 00:00: 00:00 MOUTH of 00 :00 EVERY DAY Medicin e olmesartan- Yes TAKE 1 [facility] hydrochloro 8-20 TABLET BY [facility] thiazide 00:00: MOUTH of (BENICAR 00 EVERY DAY Medici n HCT) 40-25 e MG per tablet olmesartan- Yes TAKE 1 [facility] hydrochloro 8-20 TABLET BY [facility] thiazide 00:00: MOUTH of (BENICAR 00 EVERY DAY Medici n HCT) 40-25 e MG per tablet olmesartan- Yes TAKE 1 [facility] hydrochloro 8-20 TABLET BY [facility] thiazide 00:00: MOUTH of (BENICAR 00 EVERY DAY Medici n HCT) 40-25 e MG per tablet meloxicam Yes 1 daily [facility] (MOBIC) 15 7-08 with food [facility] MG tablet 00:00: or milk. of 00 Medicin e meloxicam 2019-0 Yes 1 daily [facility] (MOBIC) 15 7-08 with food [facility] MG tablet 00:00: or milk. of Medicin e meloxicam 2019- Yes 1 daily [facility] (MOBIC) 15 7-08 with food [facility] MG tablet 00:00: or milk. of Medicin e meloxicam 2019- Yes 1 daily [facility] (MOBIC) 15 7-08 with food [facility] MG tablet 00:00: or milk. of Medicin e meloxicam 2019- Yes 1 daily [facility] (MOBIC) 15 7-08 with food [facility] MG tablet 00:00: or milk. of Medicin e sertraline Yes [id number] TAKE 1 [facility] (ZOLOFT) 25 5-28 TABLET BY Col [facility]ge MG tablet 00:00: MOUTH of 00 EVERY DAY Medicin e aspirin 81 2018- Yes 81mg Take 81 mg [facility] MG tablet 3-12 by mouth Colleg e 18:06: daily. of Medicin e metronidazo Yes 500mg Take 500 [facility] le (FLAGYL) 3-12 mg by [place] 500 MG 18:06: mouth 3 of tablet 08 times Medicin daily. e ciprofloxac Yes 500mg Take 500 [facility] in (CIPRO) 3-12 mg by [place] 500 MG 18:06: mouth two of tablet 08 times Medicin daily. e docusate Yes 100mg Take 100 [facility] sodium 3-12 mg by [place] (COLACE) 18:06: mouth two of 100 MG 08 times Medicin capsule daily. e levothyroxi Yes 175ug Take 1 Tab [facility] 2-07 by mouth [facility] (SYNTHROID) 00:00: daily. of 175 MCG 00 Medicin tablet e levothyroxi Yes 175ug Take 1 Tab [facility] ne 2-07 by mouth College (SYNTHROID) 00:00: daily. of 175 MCG 00 Medicin tablet e atorvastati Yes 10mg Take 1 Tab [facility] n (LIPITOR) 7-22 by mouth [facility] 10 MG 00:00: daily. of tablet 00 Medicin e tadalafil Yes Take 1 [facility] (CIALIS) 10 3-14 pill at [facility]le ge MG tablet 00:00: least 60 of 00 minutes Medicin prior to e sexual activity tadalafil Yes Take 1 [facility] (CIALIS) 10 3-14 pill at Colle ge MG tablet 00:00: least 60 of 00 minutes Medicin prior to e sexual activity tadalafil 2020- No Take 1 [facility] (CIALIS) 10 3-14 02-27 pill at [facility] MG tablet 00:00: 00:00 least 60 of 00 :00 minutes Medicin prior to e sexual activity lorazepam Yes .5mg Take 1 Tab [facility] (ATIVAN) 1-18 by mouth [facility] 0.5 MG 00:00: every 12 of tablet 00 hours as Medicin needed for e Anxiety. lorazepam Yes .5mg Take 1 Tab [facility] (ATIVAN) 1-18 by mouth [facility] 0.5 MG 00:00: every 12 of tablet 00 hours as Medicin needed for e Anxiety. ketoconazol Yes Apply BID [facility] (NIZORAL) 07-02 prn fungal [facility] 2 % cream 00:00: rash of 00 Medicin e ketoconazol Yes Apply BID [facility] (NIZORAL) 427 prn fungal [facility]lege 2 % cream 00:00: rash of 00 Medicin e ketoconazol Yes Apply BID [facility] (NIZORAL) 27 prn fungal [facility]lege 2 % cream 00:00: rash of 00 Medicin e ketoconazol Yes Apply BID [facility] (NIZORAL) 27 prn fungal [facility]lege 2 % cream 00:00: rash of 00 Medicin e ketoconazol 2015-0 2020- No Apply BID Chris e (NIZORAL) 4 04-21 prn fungal C ollege 2 % cream 00:00: 00:00 rash of 00 :00 Medicin e Immunizations Ordered Immunization Filled Immunization Date Status Commen ts Source Name Name Influenza Hd 2022-01-12 Completed [facility] ge 00:00:00 of Medicine Influenza Hd 2022-01-12 Completed [facility] ge 00:00:00 of Medicine Moderna SARS-CoV-2 2020-04-29 Completed [facility] Vaccination 00:00:00 of Medicine Moderna SARS-CoV-2 2020-04-29 Completed [facility] Vaccination 00:00:00 of Medicine Moderna SARS-CoV-2 2020-04-29 Completed [facility] Vaccination 00:00:00 of Medicine Moderna SARS-CoV-2 2020-04-29 Completed [facility] Vaccination 00:00:00 of Medicine Moderna SARS-CoV-2 2020-04-29 Completed [facility] Vaccination 00:00:00 of Medicine Moderna .5mL 2020-04-29 Completed [facility] Colle ge SARS-CoV-2 00:00:00 of Medicine Vaccination Moderna .5mL 2020-04-29 Completed [facility] Colle ge SARS-CoV-2 00:00:00 of Medicine Vaccination Moderna .5mL 2020-04-29 Completed [facility] Colle ge SARS-CoV-2 00:00:00 of Medicine Vaccination Moderna SARS-CoV-2 2020-03-30 Completed [facility] Vaccination 00:00:00 of Medicine Moderna SARS-CoV-2 2020-03-30 Completed [facility] Vaccination 00:00:00 of Medicine Moderna SARS-CoV-2 2020-03-30 Completed [facility] Vaccination 00:00:00 of Medicine Moderna SARS-CoV-2 2020-03-30 Completed [facility] Vaccination 00:00:00 of Medicine Moderna SARS-CoV-2 2020-03-30 Completed [facility] Vaccination 00:00:00 of Medicine Moderna .5mL 2020-03-30 Completed [facility] Colle ge SARS-CoV-2 00:00:00 of Medicine Vaccination Moderna .5mL 2020-03-30 Completed [facility] SARS-CoV-2 00:00:00 of Medicine Vaccination Moderna .5mL 2020-03-30 Completed [facility] Colle ge SARS-CoV-2 00:00:00 of Medicine Vaccination Influenza Hd 2019-04-04 Completed [facility] ge 00:00:00 of Medicine Influenza Hd 2019-04-04 Completed [facility] Colle ge 00:00:00 of Medicine Influenza Hd 2019-04-04 Completed [facility] ge 00:00:00 of Medicine Influenza Hd 2019-04-04 Completed [facility] Colle ge 00:00:00 of Medicine Influenza Hd 2019-04-04 Completed [facility] 00:00:00 of Medicine Influenza Hd 2019-04-04 Completed [facility] 00:00:00 of Medicine Influenza Hd 2019-04-04 Completed [facility] 00:00:00 of Medicine Influenza Hd 2019-04-04 Completed [facility] Colle ge 00:00:00 of Medicine Influenza Hd 2019-04-04 Completed [facility] 00:00:00 of Medicine Influenza Hd 2019-04-04 Completed [facility] Colle ge 00:00:00 of Medicine Tdap 2018-04-14 Completed [facility] 00:00:00 of Medicine Tdap 2018-04-14 Completed [facility] College 00:00:00 of Medicine Tdap 2018-04-14 Completed [facility] 00:00:00 of Medicine Tdap 2018-04-14 Completed [facility] 00:00:00 of Medicine Tdap 2018-04-14 Completed [facility] 00:00:00 of Medicine Tdap 2018-04-14 Completed [facility] 00:00:00 of Medicine Tdap 2018-04-14 Completed [facility] 00:00:00 of Medicine Tdap 2018-04-14 Completed [facility] College 00:00:00 of Medicine Tdap 2018-04-14 Completed [facility] College 00:00:00 of Medicine Tdap 2018-04-14 Completed [facility] College 00:00:00 of Medicine Tdap 2018-04-14 Completed [facility] College 00:00:00 of Medicine Tdap 2018-04-14 Completed [facility] College 00:00:00 of Medicine Tetanus 2006-04-06 Completed [facility] College 00:00:00 of Medicine Tetanus 2006-04-06 Completed [facility] 00:00:00 of Medicine Tetanus 2006-04-06 Completed [facility] 00:00:00 of Medicine Tetanus 2006-04-06 Completed [facility] 00:00:00 of Medicine Tetanus 2006-04-06 Completed [facility] 00:00:00 of Medicine Tetanus 2006-04-06 Completed [facility] College 00:00:00 of Medicine Tetanus 2006-04-06 Completed [facility] 00:00:00 of Medicine Tetanus 2006-04-06 Completed [facility] College 00:00:00 of Medicine Tetanus 2006-04-06 Completed [facility] College 00:00:00 of Medicine Tetanus 2006-04-06 Completed [facility] 00:00:00 of Medicine Tetanus 2006-04-06 Completed [facility] 00:00:00 of Medicine Tetanus 2006-04-06 Completed [facility] 00:00:00 of Medicine Vital Signs Vital Name Observation Time Observation Value Comments Source Body height 2022-08-25 15:53:00 175.3 cm [facility] ollege of [facility] Body weight 2022-08-25 15:53:00 104.327 kg [facility] ol[facility] of Medicine BMI 2022-08-25 15:53:00 33.97 kg/m2 [facility] ollege of [facility] Systolic blood 2022-01-12 18:46:00 148 mm[Hg] [facility] pressure Medicine Diastolic blood 2022-01-12 18:46:00 86 mm[Hg] [facility] Medicine Heart rate 2022-01-12 18:46:00 70 /min [facility] ol[facility] of [facility] Body temperature 2022-01-12 18:46:00 35.83 [facility] Respiratory rate 2022-01-12 18:46:00 16 /min [facility] Body height 2022-01-12 18:46:00 175.3 cm [facility] ollege of [facility] Body weight 2022-01-12 18:46:00 108.41 kg [facility] ol[facility] of [facility] BMI 2022-01-12 18:46:00 35.29 [facility] Oxygen saturation in 2022-01-12 18:46:00 98 /min [facility] Arterial blood by [facility] Pulse oximetry Body height 2021-11-26 15:13:00 175.3 cm [facility] ol[facility] of [facility] Body weight 2021-11-26 15:13:00 102.059 kg [facility] ol[facility] of Medicine BMI 2021-11-26 15:13:00 33.23 kg/m2 [facility] ol[facility] of Medicine Body height 2021-09-23 17:16:00 175.3 cm [facility] ol[facility] of Medicine Body weight 2021-09-23 17:16:00 104.327 kg [facility] ol[facility] of Medicine BMI 2021-09-23 17:16:00 33.97 kg/m2 [facility] ol[facility] of Medicine Systolic blood 2021-09-23 13:09:00 132 mm[Hg] [facility] pressure Medicine Diastolic blood 2021-09-23 13:09:00 84 mm[Hg] [facility] pressure Medicine Heart rate 2021-09-23 12:57:00 79 /min [facility] ol[facility] of Medicine Body temperature 2021-09-23 12:57:00 36.61 D[facility] Respiratory rate 2021-09-23 12:57:00 16 /min [facility] Body height 2021-09-23 12:57:00 175.3 cm [facility] C ollege of Medicine Body weight 2021-09-23 12:57:00 104.327 kg [facility] ol[facility] of Medicine BMI 2021-09-23 12:57:00 33.97 kg/m2 [facility] ol[facility] of [facility] Oxygen saturation in 2021-09-23 12:57:00 98 /min [facility] of Arterial blood by Medicine Pulse oximetry Body height 2020-10-28 18:43:00 175.3 cm [facility] ol[facility] of [facility] Body weight 2020-10-28 18:43:00 107.956 kg [facility] ol[facility] of Medicine BMI 2020-10-28 18:43:00 35.15 kg/m2 [facility] ol[facility] of Medicine Systolic blood 2020-09-24 12:56:00 136 mm[Hg] [facility] of pressure Medicine Diastolic blood 2020-09-24 12:56:00 82 mm[Hg] [facility] of pressure Medicine Heart rate 2020-09-24 12:56:00 68 /min [facility] ollege of [facility] Body temperature 2020-09-24 12:56:00 36.56 D[facility] Respiratory rate 2020-09-24 12:56:00 16 /min [facility] Body height 2020-09-24 12:56:00 175.3 cm [facility] ol[facility] of Medicine Body weight 2020-09-24 12:56:00 107.956 kg [facility] ol[facility] of Medicine BMI 2020-09-24 12:56:00 35.15 kg/m2 [facility] ol[facility] of Medicine Oxygen saturation in 2020-09-24 12:56:00 98 /min [facility] of Arterial blood by Medicine Pulse oximetry Systolic blood 2020-06-26 18:51:00 136 mm[Hg] [facility] of pressure Medicine Diastolic blood 2020-06-26 18:51:00 74 mm[Hg] [facility] of pressure Medicine Heart rate 2020-06-26 18:51:00 60 /min [facility] C ollege of Medicine Body temperature 2020-06-26 18:51:00 36.39 Dary [facility] Respiratory rate 2020-06-26 18:51:00 16 /min [facility] Body height 2020-06-26 18:51:00 175.3 cm [facility] ol[facility] of [facility] Body weight 2020-06-26 18:51:00 107.593 kg [facility] ol[facility] of [facility] BMI 2020-06-26 18:51:00 35.03 [facility]m2 [facility] Oxygen saturation in 2020-06-26 18:51:00 97 /min [facility] Arterial blood by [facility] Pulse oximetry Systolic blood 2019-10-12 17:55:00 141 mm[Hg] [facility] of pressure Medicine Diastolic blood 2019-10-12 17:55:00 82 mm[Hg] [facility] of pressure Medicine Heart rate 2019-10-12 17:55:00 84 /min [facility] ol[facility] of Medicine Body height 2019-10-12 17:55:00 175.3 cm [facility] ol[facility] of [facility] Body weight 2019-10-12 17:55:00 99.791 kg [facility] ol[facility] of [facility] BMI 2019-10-12 17:55:00 32.49 [facility]m2 [facility] Systolic blood 2019-05-04 16:10:00 148 mm[Hg] [facility] of pressure Medicine Diastolic blood 2019-05-04 16:10:00 82 mm[Hg] [facility] of pressure Medicine Heart rate 2019-05-04 16:10:00 68 /min [facility] ol[facility] of Medicine Body temperature 2019-05-04 16:10:00 36.56 Dary [facility] Body height 2019-05-04 16:10:00 175.3 cm [facility] ol[facility] of Medicine Body weight 2019-05-04 16:10:00 106.142 kg [facility] 2019-05-04 16:10:00 34.56 kg/m2 [facility] Oxygen saturation in 2019-05-04 16:10:00 98 /min [facility] Arterial blood by Medicine Pulse oximetry Systolic blood 2018-12-23 17:53:00 132 mm[Hg] [facility] pressure Medicine Diastolic blood 2018-12-23 17:53:00 82 mm[Hg] [facility] Heart rate 2018-12-23 17:53:00 80 /min [facility] Body temperature 2018-12-23 17:53:00 36.78 Dary [facility] Body height 2018-12-23 17:53:00 175.3 cm [facility] Body weight 2018-12-23 17:53:00 104.781 kg [facility] BMI 2018-12-23 17:53:00 34.11 kg/m2 [facility] Oxygen saturation in 2018-12-23 17:53:00 97 /min [facility] Arterial blood by Medicine Pulse oximetry Procedures Procedure Date / Time Performing Clinician Source Performed RI ARTHROCENTESIS ASPIR&/INJ 2022-08-25 18:13:56 Jeannette Lorenzana [facility] JT/BURSA W/O Medicine LARGE JOINT 2022-08-25 13:13:56 [facility] ge of INJECTION/ARTHROCENTESIS Medicin e AMB REF TO PT EXTERNAL 2022-08-25 11:50:11 [facility] FLU VACCINE HIGH DOSE >65YO 2022-01-12 12:49:41 [facility] SKIN / NAIL BIOPSY 2021-11-26 15:35:31 Giovany Morales [facility] RI TANGENTIAL BIOPSY SKIN 2021-11-26 12:18:20 [facility] LESION [facility] SKIN / NAIL BIOPSY 2021-11-26 10:35:31 [facility] DERMATOPATHOLOGY REPORT 2021-11-26 10:35:00 [facility] PSA 2020-09-24 12:15:00 Mckayla Cline [facility] of [facility] ELECTROCARDIOGRAM COMPLETE 2020-09-24 00:00:00 Mckayla Cline [facility] SPIROMETRY (IN CLINIC) 2019-05-04 00:00:00 Mckayla Cline [facility] ONBASE SCANNED ORDER 2009-04-04 14:04:00 [facility] ONBASE SCANNED ORDER 2009-02-27 14:04:00 [facility] CBC AND DIFFERENTIAL 2009-01-24 15:12:00 [facility] COMPREHENSIVE METABOLIC 2009-01-24 15:12:00 [facility] SEDIMENTATION RATE, 2009-01-24 15:12:00 [facility] Medicine T4 FREE 2009-01-24 15:12:00 [facility] TSH 2009-01-24 15:12:00 [facility] LIPID PANEL 2009-01-24 15:12:00 [facility] CK 2009-01-24 15:12:00 [facility] PSA 2009-01-24 15:12:00 [facility] AJITH W REFLEX TITER 2009-01-24 15:12:00 [facility] 2009-01-24 15:12:00 [facility] URINALYSIS W REFLEX MICRO 2009-01-24 15:12:00 [facility] POCT BIOASSAY FECAL BLOOD 2009-01-24 15:00:00 [facility] ONBASE LAB ORDER 2009-01-24 14:04:47 [facility] Plan of Care Planned Activity Planned Date Details Comments Source Future Scheduled 2022-08-25 BMI Follow Up Plan [facility] Test 10:58:47 [code = BMI Follow Up of Med icine Plan] Future Scheduled 2022-08-25 Hepatitis C screening [facility] Test 10:58:47 (procedure) [code = of Medic ine 520528165] Future Scheduled 2022-08-25 Zoster Vaccine (1 of 2) [facility] Test 10:58:47 [code = Zoster Vaccine of Me dicine (1 of 2)] Future Scheduled 2022-08-25 Pneumococcal 65+ (1 - [facility] Test 10:58:47 PCV) [code = of Medicine Pneumococcal 65+ (1 - PCV)] Future Scheduled 2022-08-25 Screening for malignant [facility] [employer] Test 10:58:47 neoplasm of colon of Medicin e (procedure) [code = 147232126] Future Scheduled 2022-08-25 COVID-19 Vaccine (3 - [facility] [employer] Test 10:58:47 Moderna series) [code = of M edicine COVID-19 Vaccine (3 - Moderna series)] Future Scheduled 2022-08-25 Medicare Awv [facility] Test 10:58:47 (Subsequent) [code = of Medi cine Medicare Awv (Subsequent)] Future Scheduled 2022-08-25 FLU VACCINE > 6 MONTHS [facility] [employer] [employer] Test 10:58:47 [code = FLU VACCINE > 6 of M edicine MONTHS] Future Scheduled 2022-08-25 Fall Screen [code = [facility] Test 10:58:47 Fall Screen] of Medicine Future Scheduled 2022-08-25 TETANUS SHOT (ADULT) [facility] Test 10:58:47 [code = TETANUS SHOT of Medi cine (ADULT)] Future Scheduled 2022-08-23 [facility] C screening [facility] Test 13:01:52 (procedure) [code = Hospital [id number]] Future Scheduled 2022-08-23 Screening for malignant [facility] Test 13:01:52 neoplasm of colon Hospital (procedure) [code = 524917859] Future Scheduled 2022-08-23 Screening for malignant [facility] Test 13:01:52 neoplasm of colon Hospital (procedure) [code = 059662018] Future Scheduled 2022-08-23 SHINGLES VACCINES (1 of [facility] Test 13:01:52 2) [code = SHINGLES Hospital VACCINES (1 of 2)] Future Scheduled 2022-08-23 65+ [facility]OC[address] [facility] Test 13:01:52 VACCINE (1 - PCV) [code Hosp ital = 65+ PNEUMOCOCCAL VACCINE (1 - PCV)] Future Scheduled 2022-08-23 INFLUENZA VACCINE [code [facility] Test 13:01:52 = INFLUENZA VACCINE] Hospita l Future Scheduled 2022-08-23 Screening for malignant [facility] Test 13:01:52 neoplasm of colon Hospital (procedure) [code = 635480780] Future Scheduled 2022-08-23 Screening for malignant [facility] Test 13:01:52 neoplasm of colon Hospital (procedure) [code = 363817797] Future Scheduled 2022-08-23 Screening for malignant [facility] Test 13:01:52 neoplasm of colon Hospital (procedure) [code = 924450250] Future Scheduled 2022-08-23 COVID-19 VACCINE (#1) [facility] 13:01:52 [code = COVID-19 Hospital VACCINE (#1)] Future Scheduled 2022-01-13 BMI FOLLOW UP PLAN [facility] Test 15:10:00 [code = BMI FOLLOW UP of Med icine PLAN] Future Scheduled 2022-01-13 Hepatitis C screening [facility] Test 15:10:00 (procedure) [code = of Medic ine [id number]] Future Scheduled 2022-01-13 ZOSTER VACCINE (1 of 2) [facility] Test 15:10:00 [code = ZOSTER VACCINE of Me dicine (1 of 2)] Future Scheduled 2022-01-13 Pneumococcal 65+ (1 - [facility] Test 15:10:00 PCV) [code = of Medicine Pneumococcal 65+ (1 - PCV)] Future Scheduled 2022-01-13 Screening for malignant [facility] Test 15:10:00 neoplasm of colon of Medicin e (procedure) [code = 441246561] Future Scheduled 2022-01-13 COVID-19 Vaccine (3 - [facility] Test 15:10:00 Booster for Moderna of Medic ine series) [code = COVID-19 Vaccine (3 - Booster for Moderna series)] Future Scheduled 2022-01-13 MEDICARE AWV [facility] Test 15:10:00 (Subsequent) [code = of Medi cine MEDICARE AWV (Subsequent)] Future Scheduled 2022-01-13 FALL SCREEN [code = [facility] [place] Test 15:10:00 FALL SCREEN] of Medicine Future Scheduled 2022-01-13 TETANUS SHOT (ADULT) [facility] Test 15:10:00 [code = TETANUS SHOT of Medi cine (ADULT)] Future Scheduled 2021-11-26 RI TANGENTIAL BIOPSY Ordered: [facility] Test 12:18:20 SKIN SINGLE LESION 11/26/2021 of Medici ne [code = 05183] Future Scheduled 2021-11-26 DERMATOPATHOLOGY REPORT Release Upon [facility] Test 10:36:02 [code = NOCPT] Ordering for 1 of Medicine Occurrences starting 11/26/2021 Future Scheduled 2021-11-26 BMI FOLLOW UP PLAN [employer] Test 10:13:32 [code = BMI FOLLOW UP of Med icine PLAN] Future Scheduled 2021-11-26 Hepatitis C screening [employer] [facility] [employer] Test 10:13:32 (procedure) [code = of Medic ine [id number]] Future Scheduled 2021-11-26 ZOSTER VACCINE (1 of 2) [facility] Test 10:13:32 [code = ZOSTER VACCINE of Me dicine (1 of 2)] Future Scheduled 2021-11-26 Pneumococcal 65+ (1 - [employer] [facility] [employer] Test 10:13:32 PCV) [code = of Medicine Pneumococcal 65+ (1 - PCV)] Future Scheduled 2021-11-26 Screening for malignant [facility] Test 10:13:32 neoplasm of colon of Medicin e (procedure) [code = 188550352] Future Scheduled 2021-11-26 COVID-19 Vaccine (3 - [employer] [facility] [employer] Test 10:13:32 Booster for Moderna of Medic ine series) [code = COVID-19 Vaccine (3 - Booster for Moderna series)] Future Scheduled 2021-11-26 FLU VACCINE > 6 MONTHS [facility] Test 10:13:32 [code = FLU VACCINE > 6 of M edicine MONTHS] Future Scheduled 2021-11-26 FALL SCREEN [code = [facility] [employer] Test 10:13:32 FALL SCREEN] of Medicine Future Scheduled 2021-11-26 MEDICARE AWV [facility] Test 10:13:32 (Subsequent) [code = of Medi cine MEDICARE AWV (Subsequent)] Future Scheduled 2021-11-26 TETANUS SHOT (ADULT) [facility] Test 10:13:32 [code = TETANUS SHOT of Medi cine (ADULT)] Future Scheduled 2021-09-23 BMI FOLLOW UP PLAN [employer] Test 16:17:30 [code = BMI FOLLOW UP of Med icine PLAN] Future Scheduled 2021-09-23 Hepatitis C screening [employer] Test 16:17:30 (procedure) [code = of Medic ine 569318223] Future Scheduled 2021-09-23 ZOSTER VACCINE (1 of 2) [facility] Test 16:17:30 [code = ZOSTER VACCINE of Me dicine (1 of 2)] Future Scheduled 2021-09-23 Pneumococcal 65+ (1 - [employer] [facility] [employer] Test 16:17:30 PCV) [code = of Medicine Pneumococcal 65+ (1 - PCV)] Future Scheduled 2021-09-23 Screening for malignant [facility] Test 16:17:30 neoplasm of colon of Medicin e (procedure) [code = 698635041] Future Scheduled 2021-09-23 COVID-19 Vaccine (3 - [employer] Test 16:17:30 Booster for Moderna of Medic ine series) [code = COVID-19 Vaccine (3 - Booster for Moderna series)] Future Scheduled 2021-09-23 FLU VACCINE > 6 MONTHS [employer] Test 16:17:30 [code = FLU VACCINE > 6 of M edicine MONTHS] Future Scheduled 2021-09-23 FALL SCREEN [code = [employer] Test 16:17:30 FALL SCREEN] of Medicine Future Scheduled 2021-09-23 MEDICARE AWV [facility] Test 16:17:30 (Subsequent) [code = of Medi cine MEDICARE AWV (Subsequent)] Future Scheduled 2021-09-23 TETANUS SHOT (ADULT) [facility] Test 16:17:30 [code = TETANUS SHOT of Medi cine (ADULT)] Future Scheduled 2021-09-23 BMI FOLLOW UP PLAN [facility] Test 12:15:51 [code = BMI FOLLOW UP of Med icine PLAN] Future Scheduled 2021-09-23 Hepatitis C screening [facility] Test 12:15:51 (procedure) [code = of Medic ine [id number]] Future Scheduled 2021-09-23 ZOSTER VACCINE (1 of 2) [facility] Test 12:15:51 [code = ZOSTER VACCINE of Me dicine (1 of 2)] Future Scheduled 2021-09-23 Pneumococcal 65+ (1 - [employer] Test 12:15:51 PCV) [code = of Medicine Pneumococcal 65+ (1 - PCV)] Future Scheduled 2021-09-23 Screening for malignant [facility] Test 12:15:51 neoplasm of colon of Medicin e (procedure) [code = 839133966] Future Scheduled 2021-09-23 COVID-19 Vaccine (3 - [employer] Test 12:15:51 Booster for Moderna of Medic ine series) [code = COVID-19 Vaccine (3 - Booster for Moderna series)] Future Scheduled 2021-09-23 FLU VACCINE > 6 MONTHS [employer] Test 12:15:51 [code = FLU VACCINE > 6 of M edicine MONTHS] Future Scheduled 2021-09-23 FALL SCREEN [code = [employer] Test 12:15:51 FALL SCREEN] of Medicine Future Scheduled 2021-09-23 MEDICARE AWV [facility] Test 12:15:51 (Subsequent) [code = of Medi cine MEDICARE AWV (Subsequent)] Future Scheduled 2021-09-23 TETANUS SHOT (ADULT) [employer] Test 12:15:51 [code = TETANUS SHOT of Medi cine (ADULT)] Future Scheduled 2020-10-28 BMI FOLLOW UP PLAN [employer] Test 13:45:37 [code = BMI FOLLOW UP of Med icine PLAN] Future Scheduled 2020-10-28 Hepatitis C screening [facility] [employer] Test 13:45:37 (procedure) [code = of Medic ine 609645320] Future Scheduled 2020-10-28 ZOSTER VACCINE (1 of 2) [facility] [employer] Test 13:45:37 [code = ZOSTER VACCINE of Me dicine (1 of 2)] Future Scheduled 2020-10-28 PNEUMOVAX >=65 (PPSV23) [facility] Test 13:45:37 [code = PNEUMOVAX >=65 of Me dicine (PPSV23)] Future Scheduled 2020-10-28 Screening for malignant [facility] Test 13:45:37 neoplasm of colon of Medicin e (procedure) [code = 819283111] Future Scheduled 2020-10-28 FLU VACCINE > 6 MONTHS [employer] Test 13:45:37 [code = FLU VACCINE > 6 of M edicine MONTHS] Future Scheduled 2020-10-28 FALL SCREEN [code = [employer] Test 13:45:37 FALL SCREEN] of Medicine Future Scheduled 2020-10-28 MEDICARE AWV [facility] [employer] Test 13:45:37 (Subsequent) [code = of Medi cine MEDICARE AWV (Subsequent)] Future Scheduled 2020-10-28 TETANUS SHOT (ADULT) [facility] [employer] Test 13:45:37 [code = TETANUS SHOT of Medi cine (ADULT)] Future Scheduled 2020-10-28 ORT - XR KNEE RIGHT 4V [facility] 13:13:44 (CHARGE ONLY) [code = 10/28/2020 of Med icine 90767] Future Scheduled 2020-09-25 MEDICARE AWV (Initial) [employer] Test 14:13:46 [code = MEDICARE AWV of Medi cine (Initial)] Future Scheduled 2020-09-25 BMI FOLLOW UP PLAN [employer] Test 08:38:06 [code = BMI FOLLOW UP of Med icine PLAN] Future Scheduled 2020-09-25 Hepatitis C screening [employer] Test 08:38:06 (procedure) [code = of Medic ine [id number]] Future Scheduled 2020-09-25 ZOSTER VACCINE (1 of 2) [facility] [employer] Test 08:38:06 [code = ZOSTER VACCINE of Me dicine (1 of 2)] Future Scheduled 2020-09-25 PNEUMOVAX >=65 (PPSV23) [facility] [employer] Test 08:38:06 [code = PNEUMOVAX >=65 of Me dicine (PPSV23)] Future Scheduled 2020-09-25 Screening for malignant [facility] Test 08:38:06 neoplasm of colon of Medicin e (procedure) [code = 504892551] Future Scheduled 2020-09-25 FLU VACCINE > 6 MONTHS [facility] 08:38:06 [code = FLU VACCINE > 6 of M edicine MONTHS] Future Scheduled 2020-09-25 FALL SCREEN [code = [employer] Test 08:38:06 FALL SCREEN] of Medicine Future Scheduled 2020-09-25 TETANUS SHOT (ADULT) [employer] Test 08:38:06 [code = TETANUS SHOT of Medi cine (ADULT)] Future Scheduled BMI FOLLOW UP PLAN [employer] [facility] [code = BMI FOLLOW UP of Med icine PLAN] Future Scheduled HEPATITIS C SCREENING [employer] [facility] [code = HEPATITIS C of Medic ine SCREENING] Future Scheduled PNEUMOVAX >=65 (PPSV23) [facility] [employer] Test [code = PNEUMOVAX >=65 of Me dicine (PPSV23)] Future Scheduled PREVNAR >= 65 (PCV13) [employer] Test [code = PREVNAR >= 65 of Med icine (PCV13)] Future Scheduled COLON CANCER SCREENING: [facility] Test COLONOSCOPY [code = of Medic ine COLON CANCER SCREENING: COLONOSCOPY] Future Scheduled FALL SCREEN [code = [employer] FALL SCREEN] of Medicine Future Scheduled TETANUS SHOT (ADULT) [employer] Test [code = TETANUS SHOT of Medi cine (ADULT)] Future Scheduled RI TANGENTIAL BIOPSY Ordered: [place] [employer] Test SKIN SINGLE LESION 10/12/2019 of Medici ne [code = 89887] Future Scheduled RI TANGENTIAL BIOPSY Ordered: [place] [facility] [place] Test SKIN EA SEP/ADDITIONAL 10/12/2019 of Me dicine LESION [code = 75062] Future Scheduled BMI FOLLOW UP PLAN [employer] Test [code = BMI FOLLOW UP of Med icine PLAN] Future Scheduled HEPATITIS C SCREENING [employer] Test [code = HEPATITIS C of Medic ine SCREENING] Future Scheduled PNEUMOVAX >=65 (PPSV23) [facility] [employer] Test [code = PNEUMOVAX >=65 of Me dicine (PPSV23)] Future Scheduled COLON CANCER SCREENING: [facility] Test COLONOSCOPY [code = of Medic ine COLON CANCER SCREENING: COLONOSCOPY] Future Scheduled FLU VACCINE > 6 MONTHS [employer] Test [code = FLU VACCINE > 6 of M edicine MONTHS] Future Scheduled MEDICARE AWV (Initial) [employer] Test [code = MEDICARE AWV of Medi cine (Initial)] Future Scheduled FALL SCREEN [code = [employer] FALL SCREEN] of Medicine Future Scheduled TETANUS SHOT (ADULT) [place] [employer] Test [code = TETANUS SHOT of Medi cine (ADULT)] Future Scheduled BMI FOLLOW UP PLAN [employer] Test [code = BMI FOLLOW UP of Med icine PLAN] Future Scheduled Hepatitis C screening [employer] [facility] (procedure) [code = of Medic ine [id number]] Future Scheduled ZOSTER VACCINE (1 of 2) [facility] [employer] Test [code = ZOSTER VACCINE of Me dicine (1 of 2)] Future Scheduled FALL SCREEN [code = [employer] FALL SCREEN] of Medicine Future Scheduled PNEUMOVAX >=65 (PPSV23) [facility] Test [code = PNEUMOVAX >=65 of Me dicine (PPSV23)] Future Scheduled Screening for malignant [facility] Test neoplasm of colon of Medicin e (procedure) [code = 190701106] Future Scheduled MEDICARE AWV (Initial) [employer] Test [code = MEDICARE AWV of Medi cine (Initial)] Future Scheduled FLU VACCINE > 6 MONTHS [employer] Test [code = FLU VACCINE > 6 of M edicine MONTHS] Future Scheduled TETANUS SHOT (ADULT) [employer] Test [code = TETANUS SHOT of Medi cine (ADULT)] Future Scheduled RI DESTRUC Ordered: [facility] [employer] [facility] PREMALIGNANT, FIRST 10/26/2018 of Medic ine LESION(19309) [code = 35247] Future Scheduled BMI FOLLOW UP PLAN [employer] Test [code = BMI FOLLOW UP of Med icine PLAN] Future Scheduled HEPATITIS C SCREENING [employer] Test [code = HEPATITIS C of Medic ine SCREENING] Future Scheduled HIV SCREENING [code = [employer] [facility] HIV SCREENING] of Medicine Future Scheduled FLU VACCINE > 6 MONTHS [employer] Test [code = FLU VACCINE > 6 of M edicine MONTHS] Future Scheduled COLON CANCER SCREENING: [facility] Test COLONOSCOPY [code = of Medic ine COLON CANCER SCREENING: COLONOSCOPY] Future Scheduled TETANUS SHOT (ADULT) [employer] Test [code = TETANUS SHOT of Medi cine (ADULT)] Future Scheduled MEDICARE AWV [code = [place] [employer] [facility] MEDICARE AWV] of Medicine Future Scheduled BMI FOLLOW UP PLAN [employer] Test [code = BMI FOLLOW UP of Med icine PLAN] Future Scheduled HEPATITIS C SCREENING [employer] Test [code = HEPATITIS C of Medic ine SCREENING] Future Scheduled HIV SCREENING [code = [employer] [facility] HIV SCREENING] of Medicine Future Scheduled FLU VACCINE > 6 MONTHS [employer] Test [code = FLU VACCINE > 6 of M edicine MONTHS] Future Scheduled COLON CANCER SCREENING: [facility] Test COLONOSCOPY [code = of Medic ine COLON CANCER SCREENING: COLONOSCOPY] Future Scheduled TETANUS SHOT (ADULT) [employer] Test [code = TETANUS SHOT of Medi cine (ADULT)] Future Scheduled XR C-SPINE AP, LAT, 1 Occurrences [facility] Test OBLIQUES 5 VWS [code = starting of Me dicine 10427-6] 06/26/2020 until 06/26/2021 Future Scheduled XR THORACIC SPINE 1 Occurrences [facility] Test (COMPLETE) [code = [place] [address]-7] 06/26/2020 until 06/26/2021 Future Scheduled XR SHOULDER LEFT 1 Occurrences [facility] Test (COMPLETE) [code = [place] [address]] 05/04/2019 until 05/04/2020 Procedure 4499-05-12 ONBASE LAB ORDER [facility] 00:00:00 of Medicine Encounters Start End Encounter Admission Attending Care Care Encounter Source Date/Time Date/Time Type Type Clinicians Facility Department ID 2022-08-25 2022-08-25 Office JOSE MANUEL Lorenzana [id number] [place] [address] 10:00:00 12:44:37 Visit Jeannette AMBULATOR 350.1.13.21 College Angie Y 0.2.7.2.686 of [id number] [place] 600 e 2022-08-25 2022-08-25 Outpatient [facility] [id number] [facility] 10:58:00 10:58:00 Colleg e of Medicin e 2022-08-25 2022-08-25 Outpatient [facility] [id number] [facility] 10:58:00 10:58:00 Colleg e of Medicin e 2022-01-12 2022-01-12 Office JOSE MANUEL CLINE [id number] [facility] 12:39:50 15:58:06 Visit MCKAYLA AMBULATOR 350.1.13.21 College Y 0.2.7.2.686 of [id number] [place] 300 e 2021-11-26 2021-11-26 Office JOSE MANUEL MORALES [id number] [facility] 10:08:30 10:51:02 Visit GIOVANY AMBULATOR 350.1.13.21 College Y 0.2.7.2.686 of [id number] [place] 300 e 2021-09-23 2021-09-23 Office JOSE MANUEL MORALES 1.2.840.114 [id number] [facility] 11:44:34 12:51:56 Visit GIOVANY AMBULATOR 350.1.13.21 College Y 0.2.7.2.686 of [id number] [place] 300 e 2021-09-23 2021-09-23 Office JOSE MANUEL Cline 1.2.840.114 [id number] [facility] 08:00:00 09:00:00 Visit Mckayla José Antonio AMBULATOR 350.1.13.21 College Y 0.2.7.2.686 of [id number] [place] 300 e 2021-07-02 2021-07-02 Outpatient JOSE MANUEL CLINE [facility] [id number] [facility] 12:44:26 13:13:19 MCKAYLA Colleg [employer] of Medicin e 2021-05-22 2021-05-22 Outpatient JOSE MANUEL CLINE [facility] [id number] [facility] 13:37:40 13:49:01 MCKAYLA [employer] of Medicin e 2020-10-28 2020-10-28 Office JOSE MANUEL Poole 1.2.840.114 [id number] [facility] 12:26:58 14:39:26 Visit Con B AMBULATOR 350.1.13.21 College Y 0.2.7.2.686 of [id number] [place] 600 e 2020-10-28 2020-10-28 Outpatient [facility] [id number] [facility] 13:15:14 13:15:14 Colleg e of Medicin e 2020-10-10 2020-10-10 Outpatient JOSE MANUEL MORALES [facility] [id number] [facility] 13:06:06 13:30:15 GIOVANY [employer] of Medicin e 2020-09-24 2020-09-24 Office JOSE MANUEL Cline 1.2.840.114 [id number] [facility] 07:25:31 14:18:46 Visit Mckayla Chou AMBULATOR 350.1.13.21 College Y 0.2.7.2.686 of [id number] [place] 300 e 2020-06-26 2020-06-26 Office JOSE MANUEL CLINE 1.2.840.114 [id number] [facility] 13:38:39 17:49:58 Visit MCKAYLA AMBULATOR 350.1.13.21 College Y 0.2.7.2.686 of [id number] [place] 300 e 2020-06-26 2020-06-26 Outpatient KAILYN CLINE [facility] [id number] [facility] 00:00:00 00:00:00 MCKAYLA 2020-06-26 2020-06-26 Outpatient KAILYN CLINE [facility] [id number] [facility] 00:00:00 00:00:00 MCKAYLA 2019-11-23 2019-11-23 Outpatient REN [facility] [id number] [place] 00:00:00 00:00:00 CHRIS [address] 2019-11-23 2019-11-23 Outpatient REN [facility] [id number] [place] 00:00:00 00:00:00 CHRIS [address] 2019-10-12 2019-10-12 Office JOSE MANUEL Morales 1.2.840.114 [id number] [facility] 12:12:15 13:28:18 Visit Giovany AMBULATOR 350.1.13.21 College Y 0.2.7.2.686 of [id number] [place] 300 e 2019-05-04 2019-05-04 Outpatient [facility] [id number] [facility] 12:07:27 23:59:00 [id number] 2019-05-04 2019-05-04 Office JOSE MANUEL Cline 1.2.840.114 [id number] [facility] 09:45:12 16:28:29 Visit Mckayla Chou AMBULATOR 350.1.13.21 College Y 0.2.7.2.686 of [id number] [place] 300 e 2018-12-23 2018-12-23 Office JOSE MANUEL Cline 1.2.840.114 [id number] [facility] 12:44:11 16:10:03 Visit Mckayla Chou AMBULATOR 350.1.13.21 College Y 0.2.7.2.686 of [id number] [place] 300 e 2018-10-26 2018-10-26 Office FransicoPhilippey JOSE MANUEL 1.2.840.114 [id number] [facility] 12:19:39 12:58:27 Visit AMBULATOR 350.1.13.21 College Y 0.2.7.2.686 of [id number] [place] 300 e 2009-01-24 2009-01-24 Outpatient JOSE MANUEL CLINE [facility] [id number] [facility] 14:04:47 14:04:47 MCKAYLA moser of Medicin e Results Test Description Test Time Test Comments Results Result Comments Source PSA 2020-09-25 11:15:07 Test Item Value Reference Range Interpretation Comme nts PSA (test code = 37782-0) See_Comment N OTE: Methodology is Lianet Tracie Electrochemilum inescence Immunoassay traceable to O reference standard 96/760. Unless Otherwis e Indicated, All Testing Performed At: [facility], [address] [place] [id number] [place] [address] Director: Carlton Allan M.D. CLIA Number [id number] [employer] Accreditation [place] o. 378[address]-18 [Automated message] The sy stem which generated this result transmit shivani reference range: <=4.00 NG/ML. The refe rence range was not used to interpret this result as normal/abnormal. [facility] 2 [id number] 09:00:00Reason for Exam:->upper back pain [facility] 1955 Sex: MFINAL REPORT Radiographs of the cervical spine five views with bilateral obliques. Radiographs of the thoracic spine HISTORY: PainCOMPARISON: None available. FINDINGS:Bones:No acute displaced fracture. Osseous alignment is within normal limits. Joints:Scattered degenerative change about the cervical spine most pronounced at C4/5 and C5/6. There is associated uncovertebral hypertrophy and facet arthrosis with mild bilateral neural foraminal narrowing at these levels Scattered degenerative change about the thoracic spine most pronounced at the lower thoracic spine. Soft tissues:The soft tissues appear unremarkable. IMPRESSION: Scattered degenerative change about the cervical spine most pronounced at C4/5 and C5/6. There is associated uncovertebral hypertrophy and facet arthrosis with mild bilateral neural foraminal narrowing at these levels Scattered degenerative change aboutthe thoracic spine most pronounced at the lower thoracic spine. Signed: Bimal Vasquez Verified Date/Time: 06/27/2020 09:00:28 Reading Location: [facility] Reading Room [address] [place] [address] RAD, SPINE, CERVICAL, COMPLETE (MIN 4 VIEWS)2020-06-27 09:00:00Reason for Exam:->[facility] : 1955 Sex: MFINAL REPORT Radiographs of the cervical spine five views with bilateral obliques. Radiographs of the thoracic spine HISTORY: PainCOMPARISON: None available. FINDINGS:Bones:No acute displaced fracture. Osseous alignment is within normal limits. Joints:Scattered degenerative change about the cervical spine most pronounced at C4/5 and C5/6. There is associated uncovertebral hypertrophy and facet arthrosis with mild bilateral neural foraminal narrowing at these levels Scattered degenerative change about the thoracic spine most pronounced at the lower thoracic spine. Soft tissues:The soft tissues appear unremarkable. IMPRESSION: Scattered degenerative change about the cervical spine most pronounced at C4/5 and C5/6. There is associated uncovertebral hypertrophy and facet arthrosis with mild bilateral neural foraminal narrowing at these levels Scattered degenerative change aboutthe thoracic spine most pronounced at the lower thoracic spine. Signed: Bimal Vasquezepphilly Verified Date/Time: 06/27/2020 09:00:28 Reading Location: [facility] Reading Room [address] [place] [address] RAD, SHOULDER, COMPLETE (MIN 2 VIEWS), [id number] 12:32:00Reason for Exam:->left shoulder pain, unspecified chronicityFINAL REPORT Radiographs of the left shoulder - two views HISTORY: PainCOMPARISON: None available. FINDINGS:Bones:No acute displaced fracture. Osseous alignment is within normal limits. Joints:Scattered degenerative change. No osseous erosion Soft tissues:The soft tissues appear unremarkable. IMPRESSION: Scattered degenerative change. No osseous erosion Signed: Bimal Vasquez MDReport Verified Date/Time: 05/04/2019 12:32:24 Reading Location: [facility] Reading Room [address] [place] [address]
[2022-08-26] MEDS ORDERED: AMLODIPINE 10 MG TAB ONE (14:54)
[2022-08-26 14:57] LABS: Absolute Lymphocytes (CBC) 1.6 K/uL (0.7-4.9); Hematocrit 42.2 % (39.6-49.0); Lymphocytes % 17.7 % (15.3-44.8); MCV 88.1 fL (80-100); MPV 7.2 fL (7.6-11.3); RBC Red Blood Cell Count 4.79 M/uL (4.33-5.43)
[2022-08-26 15:44] LABS: Albumin 3.8 g/dL (3.4-5.0); Bilirubin Total 0.5 mg/dL (0.2-1.0); Potassium 4.4 mEq/L (3.5-5.1); Protein, Total 8.1 g/dL (6.4-8.2); Troponin High Sensitivity 14.2 pg/mL (<58.9)
--- NOTE | 2022-08-26 16:09 | EDPHYS ---
Physician Documentation [facility] Name: Edinson Rowell Age: 67 yrs Sex: Male : 1955 Arrival Date: 08/26/2022 Time: 13:30 Bed 20 Private MD: ED Physician Darius Iniguez HPI: 08/26 21:10 This 67 yrs old Male presents to ER via Ambulatory with complaints of Vision Problem, rt High Blood Pressure. 21:10 Patient presents to the ED with hypertension today. Patient checked it at home, noticed rt it was about 200 systolic, then improved. Patient states that he also noted some floaters in his eyes. Patient states that he was worried that this might be related to the blood pressure elevation. Denies chest pain, shortness of breath. Denies other acute complaints at this time. He has been compliant with his medications. No other acute complaints at this time, symptoms are moderate severity, no other aggravating elevating factors.. Historical: - Allergies: 14:06 Codeine; ph 14:06 PENICILLINS; ph 14:06 tramadol; ph - PMHx: 14:06 constipation; Hypertension; Hypothyroidism; ph - Immunization history:: Adult Immunizations unknown. - Social history:: Smoking status: Patient denies any tobacco usage or history of. - Family history:: not pertinent. ROS: 21:10 Constitutional: Negative for fever, chills, and weight loss, Cardiovascular: Negative rt for chest pain, palpitations, and edema, Respiratory: Negative for shortness of breath, cough, wheezing, and pleuritic chest pain, Abdomen/GI: Negative for abdominal pain, nausea, vomiting, diarrhea, and constipation, MS/Extremity: Negative for injury and deformity, Skin: Negative for injury, rash, and discoloration, Neuro: Negative for headache, weakness, numbness, tingling, and seizure, Psych: Negative for depression, anxiety, suicide ideation, homicidal ideation, and hallucinations. 21:10 Eyes: Positive for Floaters, negative for blurred vision, vision loss. Exam: 16:10 ECG was reviewed by the Attending Physician. rt 21:10 Constitutional: This is a well developed, well nourished patient who is awake, alert, rt and in no acute distress. Head/Face: Normocephalic, atraumatic. Eyes: Pupils equal round and reactive to light, extra-ocular motions intact. Lids and lashes normal. Conjunctiva and sclera are non-icteric and not injected. Cornea within normal limits. Periorbital areas with no swelling, redness, or edema. Chest/axilla: Normal chest wall appearance and motion. Nontender with no deformity. No lesions are appreciated. Cardiovascular: Regular rate and rhythm with a normal S1 and S2. No gallops, murmurs, or rubs. Normal PMI, no JVD. No pulse deficits. Respiratory: Lungs have equal breath sounds bilaterally, clear to auscultation and percussion. No rales, rhonchi or wheezes noted. No increased work of breathing, no retractions or nasal flaring. Abdomen/GI: Soft, non-tender, with normal bowel sounds. No distension or tympany. No guarding or rebound. No evidence of tenderness throughout. Skin: Warm, dry with normal turgor. Normal color with no rashes, no lesions, and no evidence of cellulitis. MS/ Extremity: Pulses equal, no cyanosis. Neurovascular intact. Full, normal range of motion. Neuro: Awake and alert, GCS 15, oriented to person, place, time, and situation. Cranial nerves II-XII grossly intact. Motor strength 5/5 in all extremities. Sensory grossly intact. Cerebellar exam normal. Normal gait. Psych: Awake, alert, with orientation to person, place and time. Behavior, mood, and affect are within normal limits. Vital Signs: 14:02 BP 187 / 88; Pulse 73; Resp 18; Temp 97.9; Pulse Ox 99% on R/A; ph 14:34 BP 181 / 99; Pulse 68; Resp 17; Temp 97.5; Pulse Ox 98% on R/A; rs5 14:56 BP 172 / 94; Pulse 68; Resp 14; Pulse Ox 98% on R/A; db 16:00 BP 172 / 89; Pulse 69; Resp 18; Pulse Ox 100% ; ss MDM: 14:13 Patient medically screened. rt 21:10 Differential diagnosis: Essential hypertension, hypertensive urgency. Data reviewed: rt vital signs, nurses notes, lab test result(s), EKG. Consideration of Admission/Observation Escalation of care including admission/observation considered. I considered the following discharge prescriptions or medication management in the emergency department Medications were administered in the Emergency Department. See MAY. Test considered but Not performed: CT: No evidence for CVA, focal neurologic deficits, CT scan not indicated very low suspicion for intracranial hemorrhage as there is no headache.. Care significantly affected by the following chronic conditions: Hypertension. Counseling: I had a detailed discussion with the patient and/or guardian regarding: the historical points, exam findings, and any diagnostic results supporting the discharge/admit diagnosis, lab results, the need for outpatient follow up. ED course: No evidence of endorgan dysfunction, blood pressure improving with oral medications. We will continue these medications. Patient to follow-up as an outpatient. Patient does have floaters, discussed this with the patient. Do not believe that is related to his blood pressure.. 08/26 14:13 Order name: CBC with Diff; Complete Time: 15:55 rt 08/26 14:13 Order name: CMP; Complete Time: 15:55 rt 08/26 14:13 Order name: Troponin High Sensitivity; Complete Time: 15:55 rt 08/26 14:13 Order name: EKG; Complete Time: 14:14 rt 08/26 14:13 Order name: EKG - Nurse/Tech; Complete Time: 14:34 rt EC:10 Rate is 69 beats/min. Rhythm is regular, Normal Sinus Rhythm with Occasional PVCs. QRS rt [place] is Normal. ID interval is normal. QRS interval is normal. QT interval is normal. No Q waves. T waves are Inverted in leads V4, V5, V6. No ST changes noted. Interpreted by me. Administered Medications: 14:56 Drug: amLODIPine PO 10 mg Route: PO; db 16:00 Follow up: Response: No adverse reaction ss Disposition Summary: 08/26/22 16:09 Discharge Ordered Location: Home rt Problem: an acute exacerbation rt Symptoms: have improved rt Condition: Stable rt Diagnosis - Essential (primary) hypertension rt Followup: rt - With: Private Physician - When: 2 - 3 days - Reason: Discharge Instructions: - Discharge Summary Sheet rt - Hypertension, Adult rt Forms: - Medication Reconciliation Form rt - Thank You Letter rt - Antibiotic Education rt - Prescription Opioid Use rt Prescriptions: - Norvasc 5 mg Oral Tablet - take 1 tablet by ORAL route once daily; 30 tablet; Refills: 0, Product rt Selection Permitted Signatures: Dispatcher [employer] Kathy Tijerina RN RN ph Payton Alonzo BLAKE RN db Darius Iniguez MD MD rt Araceli Schaffer RN ss
--- NOTE | 2022-08-26 16:09 | ER ---
Nurse's Notes [facility] Name: Edinson Rowell Age: 67 yrs Sex: Male : 1955 Arrival Date: 08/26/2022 Time: 13:30 Bed 20 Private MD: Diagnosis: Essential (primary) hypertension Presentation: 08/26 14:02 Chief complaint: Patient states: High blood pressure today at [facility], reports black spots ph in vision, hx of high blood pressure, has had increased stress recently. Coronavirus screen: Vaccine status: Patient reports receiving the 2nd dose of the covid vaccine. Ebola Screen: No symptoms or risks identified at this time. Initial Sepsis Screen: Does the patient meet any 2 criteria? No. Patient's initial sepsis screen is negative. Does the patient have a suspected source of infection? No. Patient's initial sepsis screen is negative. Risk Assessment: Do you want to hurt yourself or someone else? Patient reports no desire to harm self or others. Onset of symptoms was August 26, 2022. 14:02 Method Of Arrival: Ambulatory ph 14:02 Acuity: KENNETH 2 ph Triage Assessment: 14:07 General: Appears in no apparent distress. comfortable, well groomed, Behavior is calm, ph cooperative, appropriate for age. Pain: Denies pain. Neuro: Level of Consciousness is awake, alert, obeys commands, Oriented to person, place, time, situation, Reports blurred vision in left eye. Cardiovascular: Denies chest pain. Historical: - Allergies: 14:06 Codeine; ph 14:06 PENICILLINS; ph 14:06 tramadol; ph - PMHx: 14:06 constipation; Hypertension; Hypothyroidism; ph - Immunization history:: Adult Immunizations unknown. - Social history:: Smoking status: Patient denies any tobacco usage or history of. - Family history:: not pertinent. Screenin:30 [facility] ED Fall Risk Assessment (Adult) History of falling in the last 3 months, ss including since admission No falls in past 3 months (0 pts) Confusion or Disorientation No (0 pts) Intoxicated or Sedated No (0 pts) Impaired Gait No (0 pts) Mobility Assist Device Used No (0 pt) Altered Elimination No (0 pt) Score/Fall Risk Level 0 - 2 = Low Risk Oriented to surroundings, Maintained a safe environment, Hourly rounding (assess needs \T\ fall precautionary measures) done. 15:30 Abuse screen: Denies threats or abuse. Denies injuries from another. Nutritional ss screening: No deficits noted. Tuberculosis screening: No symptoms or risk factors identified. Assessment: 14:56 Reassessment: Patient appears in no apparent distress at this time. Patient and/or db family updated on plan of care and expected duration. Pain level reassessed. Patient is alert, oriented x 3, equal unlabored respirations, skin warm/dry/pink. patient complains of high BP. Denies dizzines. denies pain. Pain: Denies pain. 16:00 Reassessment: Patient appears in no apparent distress at this time. Patient and/or ss family updated on plan of care and expected duration. Pain level reassessed. Patient is alert, oriented x 3, equal unlabored respirations, skin warm/dry/pink. Patient denies pain at this time. Patient states feeling better. Patient states symptoms have improved. Vital Signs: 14:02 BP 187 / 88; Pulse 73; Resp 18; Temp 97.9; Pulse Ox 99% on R/A; ph 14:34 BP 181 / 99; Pulse 68; Resp 17; Temp 97.5; Pulse Ox 98% on R/A; rs5 14:56 BP 172 / 94; Pulse 68; Resp 14; Pulse Ox 98% on R/A; db 16:00 BP 172 / 89; Pulse 69; Resp 18; Pulse Ox 100% ; ss ED Course: 13:33 Patient arrived in ED. mr 14:02 Darius Iniguez MD is Attending Physician. rt 14:06 Triage completed. ph 14:07 Arm band placed on. ph 14:53 Inserted saline lock: 20 gauge in right forearm, using aseptic technique. Blood rs5 collected. 14:53 Troponin High Sensitivity Sent. rs5 14:53 CMP Sent. rs5 14:53 CBC with Diff Sent. rs5 15:00 Patient has correct armband on for positive identification. Bed in low position. Call ss light in reach. 15:19 Araceli Schaffer, RN is Primary Nurse. ss 16:20 No provider procedures requiring assistance completed. ss 16:20 IV discontinued, intact, bleeding controlled. ss Administered Medications: 14:56 Drug: amLODIPine PO 10 mg Route: PO; db 16:00 Follow up: Response: No adverse reaction ss Medication: 14:07 VIS not applicable for this client. ph Outcome: 16:09 Discharge ordered by . rt 16:25 Discharged to home ambulatory, with family. ss 16:25 Condition: stable 16:25 Discharge instructions given to patient, Instructed on discharge instructions, follow up and referral plans. medication usage, Demonstrated understanding of instructions, follow-up care, medications, Prescriptions given X 1. 16:36 Patient left the ED. ss Signatures: Angie Greenberg mr Araceli Schaffer, RN RN ss Kathy Shrestha, RN RN ph Payton Alonzo, BLAKE RN db Darius Iniguez MD MD rt Thai Puentes rs5
[2022-08-26 16:52] VITALS: TEMP 97.5
[2022-08-26 16:55] VITALS: BP 172/89; O2SAT 100
--- NOTE | 2022-08-27 17:42 | EKG ---
Test Date: 2022-08-26 Test Time: 14:26:26 Sprayer Automatic Spray Machine: CHIDI MEASUREMENT RESULTS: Intervals: Rate: 69 DC: 166 QRSD: 118 QT: 392 QTc: 420 [place]co: P: 36 DC: 166 QRS: 54 T: 52 INTERPRETIVE STATEMENTS: Sinus rhythm with occasional premature ventricular complexes T wave abnormality, consider anterolateral ischemia Abnormal ECG Compared to ECG 11/19/2006 14:49:26 Ventricular premature complex(es) now present Possible ischemia now present T-wave abnormality still present Electronically Signed On 08-27-22 17:39:43 CDT by Rajeev Reece
== END 2022-08-26 16:36 | disposition home or self-care (01) ==
LOC: ER 13:30
DX: I10 Essential (primary) hypertension (principal); E03.9 Hypothyroidism, unspecified; Z88.0 Allergy status to penicillin; Z88.5 Allergy status to narcotic agent
CPT/HCPCS: 36415; 80053; 84484; 85025; 93005

== ENCOUNTER 2022-10-18 10:37 | Emergency (ER) | payer OTHER ==
--- OUTSIDE RECORDS SUMMARY | 2022-10-18 10:40 | XMS REPORT | Continuity of Care Document ---
:1955 Author Organization [facility] t Address [address] [place] [address] Care Team Providers Name Role Phone Asked, No Pcp Primary Care Physician Unavailable MCKAYLA CLINE Attending Clinician Unavailable CHRIS MCCLURE Attending Clinician Unavailable Payers Payer Name Policy Type Policy Number Effective Date Expiration Date S sam MEDICARE A B [id number] 2018 00:00:00 [employer] INDEMNITY [id number] 2018 NON CONTR 00:00:00 Problems This patient has no known problems. Allergies, Adverse Reactions, Alerts This patient has no known allergies or adverse reactions. Social History Social Habit Start Date Stop Date Quantity Comments [facility] Sex Assigned At [address] [facility] Smoking Status Start Date Stop Date Source Tobacco smoking consumption unknown [facility] Medications This patient has no known medications. Procedures This patient has no known procedures. Plan of Care Planned Activity Planned Date Details Comments Source Future Scheduled 2028-04-14 DTAP/TDAP/TD VACCINES [facility] 00:00:00 (2 - Td or Tdap) [code Medic al Center = DTAP/TDAP/TD VACCINES (2 - Td or Tdap)] Future Scheduled 2022-11-06 Influenza Vaccine (#1) [facility] 00:00:00 [code = Influenza Medical Ce nter Vaccine (#1)] Future Scheduled 2022-10-11 Hepatitis C screening [facility] Test 07:19:49 (procedure) [code = 635410982] Future Scheduled 2022-10-11 Screening for [facility] Test 07:19:49 malignant neoplasm of colon (procedure) [code = 482019337] Future Scheduled 2022-10-11 Screening for [facility] Test 07:19:49 malignant neoplasm of colon (procedure) [code = 725036120] Future Scheduled 2022-10-11 SHINGLES VACCINES (1 Met [facility] Test 07:19:49 of 2) [code = SHINGLES VACCINES (1 of 2)] Future Scheduled 2022-10-11 65+ PNEUMOCOCCAL [facility] Test 07:19:49 VACCINE (1 - PCV) [code = 65+ PNEUMOCOCCAL VACCINE (1 - PCV)] Future Scheduled 2022-10-11 INFLUENZA VACCINE Method [facility] Test 07:19:49 [code = INFLUENZA VACCINE] Future Scheduled 2022-10-11 Screening for [facility] Test 07:19:49 malignant neoplasm of colon (procedure) [code = 046849875] Future Scheduled 2022-10-11 Screening for [facility] Test 07:19:49 malignant neoplasm of colon (procedure) [code = 878459599] Future Scheduled 2022-10-11 Screening for [facility] Test 07:19:49 malignant neoplasm of colon (procedure) [code = 546667667] Future Scheduled 2022-10-11 COVID-19 VACCINE (#1) [facility] Test 07:19:49 [code = COVID-19 VACCINE (#1)] Future Scheduled 2022-08-23 Screening for [facility] Test 13:01:52 malignant neoplasm of colon (procedure) [code = 536691361] Future Scheduled 2022-08-23 Screening for [facility] Test 13:01:52 malignant neoplasm of colon (procedure) [code = 971545589] Future Scheduled 2022-08-23 SHINGLES VACCINES (1 [facility] Test 13:01:52 of 2) [code = SHINGLES VACCINES (1 of 2)] Future Scheduled 2022-08-23 65+ PNEUMOCOCCAL [facility] Test 13:01:52 VACCINE (1 - PCV) [code = 65+ PNEUMOCOCCAL VACCINE (1 - PCV)] Future Scheduled 2022-08-23 [facility]FLU[facility]ACCINE [facility] Test 13:01:52 [code = INFLUENZA VACCINE] Future Scheduled 2022-08-23 Screening for [facility] Test 13:01:52 malignant neoplasm of colon (procedure) [code = 409241766] Future Scheduled 2022-08-23 Screening for [facility] Test 13:01:52 malignant neoplasm of colon (procedure) [code = 352400758] Future Scheduled 2022-08-23 Screening for [facility] Test 13:01:52 malignant neoplasm of colon (procedure) [code = 843087148] Future Scheduled 2022-08-23 COVID-19 VACCINE (#1) [facility] Test 13:01:52 [code = COVID-19 VACCINE (#1)] Future Scheduled 2022-08-23 Hepatitis C screening [facility] Test 13:01:52 (procedure) [code = 317317386] Future Scheduled 2022-03-[address] [facility] Test 00:00:00 (12+) [code = Medical Center DEPRESSION SCREENING (12+)] Future Scheduled 2022-03-08 FALLS RISK SCREENING [facility] Test 00:00:00 [code = FALLS RISK Medical C enter SCREENING] Future Scheduled 2020-06-24 COVID-19 VACCINE (3 - [facility] 00:[facility]00 Booster for [facility] series) [code = COVID-19 VACCINE (3 - Booster for [employer] series)] Future Scheduled 2019-12-[address] [facility] Test 00:00:00 WELLNESS (YEAR 2 or Medical Center FIRST YEAR if no IPPE) [code = MEDICARE ANNUAL WELLNESS (YEAR 2 or FIRST YEAR if no IPPE)] Future Scheduled 2019 PNEUMOCOCCAL 65+ YRS [facility] Test 00:00:00 (1 - PCV) [code = Medical nter PNEUMOCOCCAL 65+ YRS (1 - PCV)] Future Scheduled 2004-01-04 SHINGLES VACCINES ([address] [facility] Test 00:00:00 of 2) [code = SHINGLES Medic al Center VACCINES (1 of 2)] Future Scheduled 1972-01-04 HEPATITIS C SCREENING [facility] Test 00:00:00 [code = HEPATITIS C Medical Center SCREENING] Future Scheduled [address] [facility] Test 00:00:00 Counseling and Medical Cente r Screening (12+) [code = Tobacco Cessation Counseling and Screening (12+)] Future Scheduled [address] [facility] 00:00:00 (combo) [code = CT Medical C enter Colonography (combo)] Future Scheduled [address] [facility] 00:[facility]:00 malignant neoplasm of Medica l Center colon (procedure) [code = 421591491] Future Scheduled [address] [facility] Test 00:00:00 malignant neoplasm of Medica l Center colon (procedure) [code = 680398262] Future Scheduled [address] [facility] Test 00:00:00 malignant neoplasm of Medica l Center colon (procedure) [code = 323859868] Future Scheduled [address] [facility] Test 00:00:00 malignant neoplasm of Medica l Center colon (procedure) [code = 083653397] Future Scheduled 1955 Sigmoidoscopy [code = [facility] 00:[facility] Sigmoidoscopy] Medical Cente r Encounters Start End Encounter Admission Attending Care Care Encounter Source Date/Time Date/Time Type Type Clinicians Facility Department ID 2020-06-26 2020-06-26 Outpatient [facility] [id number] [facility] 00:00:00 00:00:00 [place] [facility] 2020-06-26 2020-06-26 Outpatient [facility] [id number] [facility] 00:00:00 00:00:00 [place] [facility] 2019-11-23 2019-11-[address] [facility] [id number] [place] 00:00:00 00:00:00 [facility] [address] 2019-11-23 2019-11-23 Outpatient [facility] [id number] [place] 00:00:00 00:00:00 CH[facility] [address] 2019-05-04 2019-05-04 Outpatient [facility] [id number] [facility] 12: 23:59:00 [id number] Results Test Description Test Time Test Comments Results Result Sourc e Comments RAD, SPINE, 2020-06-27 Reason for THORACIC, 2 VIEWS 09:00:00 Exam:->upper back pain [facility] APRIL DEMPSEY : 1955 Sex: M *FINAL REPORT Radiographs of the cervical spine five [...] the lower thoracic spine. Signed: [facility] Verified Date/Time: 06/27/2020 09:00:28 Reading Location: [facility] Reading Room [address] [place] [address] , SPINE, 2020-06-27 Reason for CERVICAL, 09:00:00 Exam:->neck pain COMPLETE (MIN 4 VIEWS) [facility] 1955 Sex: M *FINAL REPORT Radiographs of the cervical spine five [...] Vasquez Verified Date/Time: 06/27/2020 09:00:28 Reading Location: [facility] Reading Room [address] [place] [address] , SHOULDER, 2019-05-04 Reason for FINAL REPORT PATIENT COMPLETE (MIN 2 12:32:00 Exam:->left ID: [id number] VIEWS), LEFT shoulder pain, Radiographs of the unspecified left shoulder - two chronicity views HISTORY: PainCOMPARISON: None available. FINDINGS:Bones:No acute displaced fracture. Osseous alignment is within normal limits. Joints:Scattered degenerative change. No osseous erosion Soft tissues:The soft tissues appear unremarkable. IMPRESSION: Scattered degenerative change. No osseous erosion Signed: Bimal Vasquez [facility] Verified Date/Time: 05/04/2019 12:32:24 Reading Location: [facility] Reading Room [address] [place] [address]
[2022-10-18 11:07] LABS: Absolute Lymphocytes (CBC) 1.5 K/uL (0.7-4.9); Hematocrit 42.6 % (39.6-49.0); Lymphocytes % 17.3 % (15.3-44.8); MCV 86.4 fL (80-100); MPV 6.9 fL (7.6-11.3); Platelets 289 thou/uL (152-406); RBC Red Blood Cell Count 4.93 M/uL (4.33-5.43)
[2022-10-18] MEDS ORDERED: cloNIDine HCL 0.1 MG TAB ONE (11:19)
[2022-10-18 11:24] LABS: Potassium 3.6 mEq/L (3.5-5.1)
--- NOTE | 2022-10-18 12:31 | ER ---
Nurse's Notes [facility] Name: Edinson Rowell Age: 67 yrs Sex: Male : 1955 Arrival Date: 10/18/2022 Time: 10:37 Bed 6 Private MD: Diagnosis: Essential (primary) hypertension Presentation: 10/18 11:06 Chief complaint: Patient states: High Blood pressure. Coronavirus screen: Vaccine me1 status: Patient reports receiving the 2nd dose of the covid vaccine. At this time, the client does not indicate any symptoms associated with coronavirus-19. Ebola Screen: No symptoms or risks identified at this time. Initial Sepsis Screen: Does the patient meet any 2 criteria? No. Patient's initial sepsis screen is negative. Does the patient have a suspected source of infection? No. Patient's initial sepsis screen is negative. Risk Assessment: Do you want to hurt yourself or someone else? Patient reports no desire to harm self or others. Onset of symptoms was October 18, 2022. 11:06 Method Of Arrival: Ambulatory va1 11:06 Acuity: KENNETH 3 me1 Triage Assessment: 11:07 General: Appears uncomfortable, obese, well groomed, well developed, Behavior is me1 cooperative, appropriate for age, anxious. Pain: Denies pain. Neuro: Level of Consciousness is awake, alert, obeys commands, Oriented to person, place, time, situation, Appropriate for age. Cardiovascular: Capillary refill < 3 seconds Patient's skin is warm and dry. Respiratory: Airway is patent Respiratory effort is even, unlabored, Respiratory pattern is regular, symmetrical. Historical: - Allergies: 11:07 Codeine; me1 11:07 PENICILLINS; me1 11:07 tramadol; me1 - Home Meds: 11:11 meloxicam 15 mg oral tablet daily [Active]; cyclobenzaprine 10 mg Oral tablet TID prn me1 muscle spasms [Active]; clonidine HCl 0.1 mg Oral Tablet, Extended Release 12 hr every day at bedtime [Active]; olmesartan-hydrochlorothiazide 40-25 mg oral tablet daily [Active]; levothyroxine 175 mcg capsule daily [Active]; atorvastatin 10 mg oral tablet Daily three times a week. [Active]; - PMHx: 11:07 constipation; Hypertension; Hypothyroidism; Hypercholesterolemia; Osteoarthritis; me1 herniated disk; - PSHx: 11:07 Left ankle ORIF; Left knee arthroplasty; me1 - Immunization history:: Adult Immunizations up to date. - Social history:: Smoking status: Patient denies any tobacco usage or history of. Screenin:[address] [facility] ED Fall Risk Assessment (Adult) Score/Fall Risk Level 0 - 2 = Low Risk. Abuse me1 screen: Denies threats or abuse. Nutritional screening: No deficits noted. Tuberculosis screening: No symptoms or risk factors identified. Assessment: 11:14 General: See triage assessment.. me1 Vital Signs: 11:06 BP 189 / 127; Pulse 80; Resp 19; Temp 98.1(O); Pulse Ox 99% on R/A; Weight 104.33 kg; me1 Height 5 ft. 9 in. ; Pain 0/10; 12:07 BP 154 / 102; Pulse 71; Resp 18; Pulse Ox 96% on R/A; ph 11:06 Body Mass Index 33.96 (104.33 kg, 175.26 cm) va1 11:06 Pain Scale: Adult [facility] ED Course: 10:39 Patient arrived in ED. mr 10:42 KrisLata FNP-C is PHCP. kb 10:42 Vahid Parker MD is Attending Physician. kb 10:57 Troponin High Sensitivity Sent. bc6 10:57 Basic Metabolic Panel Sent. bc6 10:58 CBC with Diff Sent. bc6 10:58 Inserted saline lock: 22 gauge in left hand, using aseptic technique. Blood collected. bc6 11:05 Myrtle Crawford, RN is Primary Nurse. me1 11:07 Triage completed. me1 11:07 Arm band placed on Patient placed in waiting room. me1 11:14 No provider procedures requiring assistance completed. me1 11:14 Inserted saline lock: 22 gauge in left hand, using aseptic technique. me1 11:14 Patient has correct armband on for positive identification. Bed in low position. Call [facility] light in reach. Side rails up X 1. Provided Education on: POC. Verbalized understanding. . 12:46 IV discontinued, intact, bleeding controlled, No redness/swelling at site. Pressure ph dressing applied. Administered Medications: 11:11 Drug: cloNIDine PO 0.1 mg Route: PO; ph Medication: 11:14 VIS not applicable for this client. me1 Outcome: 12:30 Discharge ordered by . cory 12:46 Discharged to home ambulatory, with significant other. ph 12:46 Condition: good 12:46 Discharge instructions given to patient, Instructed on discharge instructions, follow up and referral plans. Demonstrated understanding of instructions, follow-up care. 12:46 Patient left the ED. ph Signatures: Lata Ponce, SHIRT CREASER-C SHIRT CREASER-CkAngie Morse Kathy Shrestha RN RN Ro Mooney [facility] Myrtle Crawford RN RN me1
--- NOTE | 2022-10-18 12:31 | EDPHYS ---
Physician Documentation [facility] Name: Edinson Rowell Age: 67 yrs Sex: Male : 1955 Arrival Date: 10/18/2022 Time: 10:37 Bed 6 Private MD: ED Physician Vahid Parker HPI: 10/18 12:28 This 67 yrs old Male presents to ER via Ambulatory with complaints of High Blood kb Pressure. 12:28 The patient has elevated blood pressure and discovered this at home, with a home kb device. Onset: The symptoms/episode began/occurred this morning. Associated signs and symptoms: Pertinent positives: dizziness, Pertinent negatives: chest pain, dyspnea, headache, lightheadedness, nausea, visual changes, vomiting, weakness. Severity of symptoms: At its worst the blood pressure was moderate, in the emergency department the blood pressure is unchanged. The patient has not experienced similar symptoms in the past. The patient has not recently seen a physician. Pt reports he had some dizziness this morning so he checked his bp and it was 190s/110s so he came in. . Historical: - Allergies: 11:07 Codeine; me1 11:07 PENICILLINS; me1 11:07 tramadol; me1 - Home Meds: 11:11 meloxicam 15 mg oral tablet daily [Active]; cyclobenzaprine 10 mg Oral tablet TID prn me1 muscle spasms [Active]; clonidine HCl 0.1 mg Oral Tablet, Extended Release 12 hr every day at bedtime [Active]; olmesartan-hydrochlorothiazide 40-25 mg oral tablet daily [Active]; levothyroxine 175 mcg capsule daily [Active]; atorvastatin 10 mg oral tablet Daily three times a week. [Active]; - PMHx: 11:07 constipation; Hypertension; Hypothyroidism; Hypercholesterolemia; Osteoarthritis; me1 herniated disk; - PSHx: 11:07 Left ankle ORIF; Left knee arthroplasty; me1 - Immunization history:: Adult Immunizations up to date. - Social history:: Smoking status: Patient denies any tobacco usage or history of. ROS: 12:27 Constitutional: Negative for fever, chills, and weight loss. kb 12:27 Neuro: Positive for dizziness. 12:27 All other systems are negative. Exam: 12:27 Constitutional: This is a well developed, well nourished patient who is awake, alert, kb and in no acute distress. Head/Face: Normocephalic, atraumatic. ENT: Moist Mucous membranes Cardiovascular: Regular rate and rhythm with a normal S1 and S2. No gallops, murmurs, or rubs. No pulse deficits. Respiratory: Respirations even and unlabored. No increased work of breathing. Talking in full sentences Abdomen/GI: Soft, non-tender. No distention Skin: Warm, dry with normal turgor. Normal color. MS/ Extremity: Pulses equal, no cyanosis. Neurovascular intact. Full, normal range of motion. Neuro: Awake and alert, GCS 15, oriented to person, place, time, and situation. Moves all extremities. Normal gait. 12:27 ECG was reviewed by the Attending Physician. Vital Signs: 11:06 BP 189 / 127; Pulse 80; Resp 19; Temp 98.1(O); Pulse Ox 99% on R/A; Weight 104.33 kg; me1 Height 5 ft. 9 in. ; Pain 0/10; 12:07 BP 154 / 102; Pulse 71; Resp 18; Pulse Ox 96% on R/A; ph 11:06 Body Mass Index 33.96 (104.33 kg, 175.26 cm) me1 11:06 Pain Scale: Adult me1 MDM: 10:42 Patient medically screened. kb 12:27 Data reviewed: vital signs, nurses notes. kb 12:29 Differential diagnosis: hypertensive crisis, CVA, abnormal ekg. Counseling: I had a kb detailed discussion with the patient and/or guardian regarding: the historical points, exam findings, and any diagnostic results supporting the discharge/admit diagnosis, lab results, the need for outpatient follow up, a family practitioner, to return to the emergency department if symptoms worsen or persist or if there are any questions or concerns that arise at home. 12:30 Test considered but Not performed: CT: CT head considered, but pt has no neuro deficits.kb 10/18 10:47 Order name: CBC with Diff; Complete Time: 11:10 kb 10/18 10:47 Order name: Basic Metabolic Panel; Complete Time: 11:27 kb 10/18 10:47 Order name: Troponin High Sensitivity; Complete Time: 11:27 kb 10/18 10:47 Order name: EKG; Complete Time: 10:47 kb 10/18 10:47 Order name: EKG - Nurse/Tech; Complete Time: 11:11 kb EC:27 Rate is 76 beats/min. Rhythm is regular. QRS Nelson is Normal. AK interval is normal at kb 190 msec. QRS interval is normal at 122 msec. QT interval is normal at 418 msec. Administered Medications: : Drug: cloNIDine PO 0.1 mg Route: PO; ph Disposition Summary: 10/18/22 12:30 Discharge Ordered Location: Home kb Condition: Stable kb Diagnosis - Essential (primary) hypertension kb Followup: kb - With: Emergency Department - When: As needed - Reason: Worsening of condition Followup: kb - With: Private Physician - When: 2 - 3 days - Reason: Recheck today's complaints, Continuance of care, Re-evaluation by your physician Discharge Instructions: - Discharge Summary Sheet kb - Hypertension, Adult, [id number] kb - How to Take Your Blood Pressure, [id number] kb - Managing Your Hypertension kb Forms: - Medication Reconciliation Form kb - Thank You Letter kb - Antibiotic Education kb - Prescription Opioid Use kb - Patient Portal Instructions kb - Leadership Thank You Letter kb Signatures: Dispatcher [employer] Lata Hammond, SENIOR INTEGRATION ARCHITECT-C SENIOR INTEGRATION ARCHITECT-Kathy Iyer, RN RN ph Myrtle Crawford, RN RN me1
[2022-10-18 13:07] VITALS: TEMP 98.1
[2022-10-18 13:08] VITALS: BP 154/102; O2SAT 96
--- NOTE | 2022-10-19 13:11 | EKG ---
Test Date: 2022-10-18 Test Time: 10:56:48 [place]: MEASUREMENT RESULTS: Intervals: Rate: 76 ND: 190 QRSD: 122 QT: 372 QTc: 418 [place]: P: 51 ND: 190 QRS: 58 T: 3 INTERPRETIVE STATEMENTS: Sinus rhythm with premature atrial complexes Right bundle branch block Abnormal ECG Compared to ECG 08/26/2022 14:26:26 Atrial premature complex(es) now present Right bundle-branch block now present Ventricular premature complex(es) no longer present T-wave abnormality no longer present Possible ischemia no longer present Electronically Signed On 10-19-22 13:09:54 CDT by Rajeev Reece
== END 2022-10-18 12:46 | disposition home or self-care (01) ==
LOC: ER 10:37
DX: I10 Essential (primary) hypertension (principal); E78.00 Pure hypercholesterolemia, unspecified; Z88.0 Allergy status to penicillin; Z88.5 Allergy status to narcotic agent
CPT/HCPCS: 36415; 80048; 84484; 85025; 93005; 99284

== ENCOUNTER 2022-10-22 08:35 | Emergency (ER) | payer OTHER ==
--- OUTSIDE RECORDS SUMMARY | 2022-10-22 08:39 | XMS REPORT | Continuity of Care Document ---
:1955 Author Organization [facility] t Address [address] [place] [address] Care Team Providers Name Role Phone Asked, No Pcp Primary Care Physician Unavailable MCKAYLA CLINE Attending Clinician Unavailable CHRIS MCCLURE Attending Clinician Unavailable Payers Payer Name Policy Type Policy Number Effective Date Expiration Date S sam MEDICARE A B [id number] 2018 00:00:00 [employer] INDEMNITY [id number] 2018 NON CONTR 00:00:00 Problems This patient has no known problems. Allergies, Adverse Reactions, Alerts This patient has no known allergies or adverse reactions. Social History Social Habit Start Date Stop Date Quantity Comments Source Gender identity [facility] Sexual orientation Method t Hospital Sex Assigned At [address] [facility]00 [facility] Smoking Status Start Date Stop Date Source Tobacco smoking consumption unknown [facility] Medications This patient has no known medications. Procedures This patient has no known procedures. Plan of Care Planned Activity Planned Date Details Comments Source Future Scheduled 2028-04-14 DTAP/TDAP/TD VACCINES [facility] 00:00:00 (2 - Td or Tdap) [code Medic al Center = DTAP/TDAP/TD VACCINES (2 - Td or Tdap)] Future Scheduled 2028-04-14 DTAP/TDAP/TD VACCINES [facility] 00:00:00 (2 - Td or Tdap) [code Medic al Center = DTAP/TDAP/TD VACCINES (2 - Td or Tdap)] Future Scheduled 2022-11-06 Influenza Vaccine (#1) [facility] 00:[facility]00 [code = Influenza Medical Ce nter Vaccine (#1)] Future Scheduled 2022-11-06 Influenza Vaccine (#1) [facility] 00:00:00 [code = Influenza Medical Ce nter Vaccine (#1)] Future Scheduled 2022-10-22 [facility] 08:37:43 (procedure) [code = 632299201] Future Scheduled 2022-10-22 [facility] Test 08:37:43 malignant neoplasm of colon (procedure) [code = 827276302] Future Scheduled 2022-10-22 [facility] 08:37:43 malignant neoplasm of colon (procedure) [code = 714979076] Future Scheduled 2022-10-22 SHINGLES VACCINES (1 [facility] 08:37:43 of 2) [code = SHINGLES VACCINES (1 of 2)] Future Scheduled 2022-10-22 65[facility] 08:37:43 VACCINE (1 - PCV) [code = 65+ PNEUMOCOCCAL VACCINE (1 - PCV)] Future Scheduled 2022-10-22 [facility]ACCINE [facility] 08:37:43 [code = INFLUENZA VACCINE] Future Scheduled 2022-10-22 [facility] 08:37:43 malignant neoplasm of colon (procedure) [code = 661941179] Future Scheduled 2022-10-22 [facility] 08:37:43 malignant neoplasm of colon (procedure) [code = 633001802] Future Scheduled 2022-10-22 [facility] 08:37:43 malignant neoplasm of colon (procedure) [code = 695756210] Future Scheduled 2022-10-22 COVID-19 [facility]ACCINE (#[facility]) [facility] 08:37:43 [code = COVID-19 VACCINE (#1)] Future Scheduled 2022-10-11 [facility] Test 07:19:49 malignant neoplasm of colon (procedure) [code = 180823678] Future Scheduled 2022-10-11 [facility] 07:19:49 malignant neoplasm of colon (procedure) [code = 027999755] Future Scheduled 2022-10-11 [facility] 07:19:49 malignant neoplasm of colon (procedure) [code = 859436706] Future Scheduled 2022-10-11 COVID-19 VACCINE (#1) [facility] Test 07:19:49 [code = COVID-19 VACCINE (#1)] Future Scheduled 2022-10-11 Hepatitis C screening [facility] Test 07:19:49 (procedure) [code = 706516290] Future Scheduled 2022-10-11 [facility] Test 07:19:49 malignant neoplasm of colon (procedure) [code = 542629486] Future Scheduled 2022-10-11 [facility] 07:19:49 malignant neoplasm of colon (procedure) [code = 478822909] Future Scheduled 2022-10-11 SHINGLES VACCINES (1 [facility] Test 07:19:49 of 2) [code = SHINGLES VACCINES (1 of 2)] Future Scheduled 2022-10-11 65+ [facility] 07:19:49 VACCINE (1 - PCV) [code = 65+ PNEUMOCOCCAL VACCINE (1 - PCV)] Future Scheduled 2022-10-11 INFLUENZA VACCINE [facility] Test 07:19:49 [code = INFLUENZA VACCINE] Future Scheduled 2022-08-23 [facility] Test 13:01:52 malignant neoplasm of colon (procedure) [code = 373452601] Future Scheduled 2022-08-23 [facility] 13:01:52 malignant neoplasm of colon (procedure) [code = 922173797] Future Scheduled 2022-08-23 SHINGLES VACCINES (1 [facility] Test 13:01:52 of 2) [code = SHINGLES VACCINES (1 of 2)] Future Scheduled 2022-08-23 65+ [facility] 13:01:52 VACCINE (1 - PCV) [code = 65+ PNEUMOCOCCAL VACCINE (1 - PCV)] Future Scheduled 2022-08-23 INFLUENZA VACCINE [facility] Test 13:01:52 [code = INFLUENZA VACCINE] Future Scheduled 2022-08-23 [facility] 13:01:52 malignant neoplasm of colon (procedure) [code = 230972245] Future Scheduled 2022-08-23 [facility] 13:01:52 malignant neoplasm of colon (procedure) [code = 326239911] Future Scheduled 2022-08-23 [facility] 13:01:52 malignant neoplasm of colon (procedure) [code = 469205649] Future Scheduled 2022-08-23 COVID-19 VACCINE (#1) [facility] Test 13:01:52 [code = COVID-19 VACCINE (#1)] Future Scheduled 2022-08-23 Hepatitis C screening [facility] Test 13:01:52 (procedure) [code = 997632246] Future Scheduled 2022-03-[address] [facility] Test 00:00:00 (12+) [code = Medical Center DEPRESSION SCREENING (12+)] Future Scheduled 2022-03-08 FALLS RISK SCREENING [facility] Test 00:00:00 [code = FALLS RISK Medical C enter SCREENING] Future Scheduled 2022-03-[address] [...] - Booster for Modern[employer] series)] Future Scheduled 2020-06-24 COVID-19 VACCINE (3 - [...] FIRST YEAR if no IPPE)] Future Scheduled 2019-12-[address] [facility] 00:00:00 WELLNESS (YEAR 2 or Medical Center FIRST YEAR if no IPPE) [code = MEDICARE ANNUAL WELLNESS (YEAR 2 or FIRST YEAR if no IPPE)] Future Scheduled 2019 PNEUMOCOCCAL 65+ YRS [facility] Test 00:00:00 (1 - PCV) [code = Medical Ce nter PNEUMOCOCCAL 65+ YRS (1 - PCV)] Future Scheduled 2019 PNEUMOCOCCAL 65+ YRS [facility] Test 00:00:00 (1 - PCV) [code = Medical Ce nter PNEUMOCOCCAL 65+ YRS (1 - PCV)] Future Scheduled 2004-01-04 SHINGLES VACCINES ([address] [facility] Test 00:00:00 of 2) [code = SHINGLES Medic al Center VACCINES (1 of 2)] Future Scheduled 2004-01-04 SHINGLES VACCINES ([address] [facility] Test 00:00:00 of 2) [code = SHINGLES Medic al Center VACCINES (1 of 2)] Future Scheduled 1972-01-04 HEPATITIS C SCREENING [facility] 00:00:00 [code = HEPATITIS C Medical Center SCREENING] Future Scheduled 1972-01-04 HEPATITIS C SCREENING [facility] 00:00:00 [code = HEPATITIS C Medical Center SCREENING] Future Scheduled [address] [facility] Test 00:00:00 Counseling and Medical Cente r Screening (12+) [code = Tobacco Cessation Counseling and Screening (12+)] Future Scheduled [address] [...] Medica l Center colon (procedure) [code = 419352787] Future Scheduled [address] [facility] 00:[facility]:00 malignant neoplasm of Medica l Center colon (procedure) [code = 818437488] Future Scheduled [address] [facility] 00:00:00 malignant neoplasm of Medica l Center colon (procedure) [code = 682151600] Future Scheduled [address] [facility] 00:00:00 malignant neoplasm of Medica l Center colon (procedure) [code = 731626011] Future Scheduled 1955 Sigmoidoscopy [code [facility]] Medical Melanie henderson Future Scheduled [address] [facility] 00:00:00 (combo) [code = CT Medical C enter Colonography (combo)] Future Scheduled [address] [facility] 00:00:00 malignant neoplasm of Medica l Center colon (procedure) [code = 624258076] Future Scheduled [address] [facility] 00:00:00 malignant neoplasm of Medica l Center colon (procedure) [code = 935271632] Future Scheduled [address] [facility] 00:00:00 malignant neoplasm of Medica l Center colon (procedure) [code = 971623753] Future Scheduled [address] [facility] Test 00:00:00 malignant neoplasm of Medica l Center colon (procedure) [code = 326923733] Future Scheduled 1955 Sigmoidoscopy [facility] S[facility]oscopy] Medical Melanie henderson Encounters Start End Encounter Admission Attending Care Care Encounter Source Date/Time Date/Time Type Type Clinicians Facility Department ID 2020-06-26 2020-06-26 Outpatient [facility] [id number] [facility] 00:00:00 00:00:00 [place] 2020-06-26 2020-06-26 Outpatient [facility] [id number] [facility] 00:00:00 00:00:00 [place] 2019-11-23 2019-11-23 Outpatient [facility] [id number] [place] 00:00:00 00:00:00 CHRIS [address] 2019-11-23 2019-11-23 Outpatient [facility] [id number] [place] 00:00:00 00:00:00 CHRIS [address] 2019-05-04 2019-05-04 Outpatient [facility] [id number] [facility] 12:07 23:59:00 [id number] Results Test Description Test Time Test Comments Results Result Sour e Comments RAD, SPINE, 2020-06-27 Reason for THORACIC, 2 VIEWS 09:00:00 Exam:->[facility] 1955 Sex: M [...] the lower thoracic spine. Signed: Bimal Vasquez MDReport Verified Date/Time: 06/27/2020 09:00:28 Reading Location: [facility] Reading Room [address] [place] [address] , SPINE, 2020-06-27 Reason for CERVICAL, 09:00:00 Exam:->neck pain COMPLETE (MIN 4 VIEWS) [facility] 1955 Sex: M [...] Vasquez Verified Date/Time: 06/27/2020 09:00:28 Reading Location: [facility] Reading Room [address] [place] [address] , SHOULDER, 2019-05-04 Reason for FINAL REPORT PATIENT COMPLETE (MIN 2 12:32:00 Exam:->left ID: [id number] VIEWS), LEFT shoulder pain, Radiographs of the unspecified left shoulder - two chronicity views HISTORY: PainCOMPARISON: None available. FINDINGS:Bones:No acute displaced fracture. Osseous alignment is within normal limits. Joints:Scattered degenerative change. No osseous erosion Soft tissues:The soft tissues appear unremarkable. IMPRESSION: Scattered degenerative change. No osseous erosion Signed: Bimal Vasquez MDR[facility] Verified Date/Time: 05/04/2019 12:32:24 Reading Location: [facility] Reading Room [address] [place] [address]
[2022-10-22 09:00] LABS: Absolute Lymphocytes (CBC) 1.2 K/uL (0.7-4.9); Hematocrit 41.2 % (39.6-49.0); Lymphocytes % 14.9 % (15.3-44.8); MCV 86.2 fL (80-100); Platelets 288 thou/uL (152-406); RBC Red Blood Cell Count 4.78 M/uL (4.33-5.43)
[2022-10-22 09:03] LABS: Protime INR 1.15
[2022-10-22 09:18] LABS: Albumin 3.7 g/dL (3.4-5.0); Bilirubin Direct 0.3 mg/dL (0-0.2); Bilirubin Indirect, Calculated 0.5 mg/dL (0.2-0.8); Bilirubin Total 0.8 mg/dL (0.2-1.0); Potassium 3.7 mEq/L (3.5-5.1); Protein, Total 7.6 g/dL (6.4-8.2); Troponin High Sensitivity 14.5 pg/mL (<58.9)
--- NOTE | 2022-10-22 09:28 | RAD REPORT ---
EXAM DESCRIPTION: Thomas Single View10/22/2022 8:59 am CLINICAL HISTORY: COUGH COMPARISON: 11/19/2006 TECHNIQUE: Portable AP view of the chest. FINDINGS: The lungs are clear. No pneumothorax or effusion. The cardiomediastinal contours are unrem arkable. IMPRESSION: No acute cardiopulmonary process.
[2022-10-22 09:35] LABS: Specific Gravity 1.019 (1.005-1.030); Urine Bilirubin NEGATIVE (Negative); Urine Blood Negative (Negative); Urine Clarity Clear (Clear); Urine Color Light-Yellow (Yellow); Urine Glucose NEGATIVE (Negative); Urine Protein NEGATIVE (Negative); Urine Urobilinogen Normal (Normal); Urine pH 6.5 (5.0-7.0)
--- NOTE | 2022-10-22 09:43 | EDPHYS ---
Physician Documentation [facility] Name: Edinson Rowell Age: 67 yrs Sex: Male : 1955 Arrival Date: 10/22/2022 Time: 08:35 Bed 14 Private MD: MARIE Physician Santy Zheng HPI: 10/22 09:37 This 67 yrs old Male presents to ER via Ambulatory with complaints of Blood alexa Pressure Problem. 09:37 The patient presents to the emergency department with anxiety. Onset: The alexa symptoms/episode began/occurred 3 day(s) ago. Past psychiatric history: Prior diagnosis: no previous psychiatric diagnosis known. anxious , with htn. Associated signs and symptoms: Pertinent positives; anxiety. Severity of symptoms: At their worst the symptoms were mild in the emergency department the symptoms are unchanged. The patient has not experienced similar symptoms in the past. Historical: - Allergies: 08:49 Codeine; bp 08:49 PENICILLINS; bp 08:49 tramadol; bp - Home Meds: 08:49 atorvastatin 10 mg Oral tablet daily [Active]; clonidine HCl 0.1 mg Oral Tablet, bp Extended Release 12 hr every day at bedtime [Active]; levothyroxine 175 mcg capsule daily [Active]; olmesartan-hydrochlorothiazide 40-25 mg Oral tablet daily [Active]; meloxicam 15 mg Oral tablet daily [Active]; cyclobenzaprine 10 mg Oral tablet TID prn muscle spasms [Active]; - PMHx: 08:49 constipation; herniated disk; Hypercholesterolemia; Hypertension; Hypothyroidism; bp osteoarthritis; Anxiety; - PSHx: 08:49 Left ankle ORIF; Left knee arthroplasty; bp - Immunization history:: Adult Immunizations up to date. - Social history:: Smoking status: Patient denies any tobacco usage or history of. ROS: 09:40 Constitutional: Negative for fever, chills, and weight loss, Eyes: Negative for injury, alexa pain, redness, and discharge, ENT: Negative for injury, pain, and discharge, Neck: Negative for injury, pain, and swelling, Cardiovascular: Negative for chest pain, palpitations, and edema, Respiratory: Negative for shortness of breath, cough, wheezing, and pleuritic chest pain, Abdomen/GI: Negative for abdominal pain, nausea, vomiting, diarrhea, and constipation, Back: Negative for injury and pain, : Negative for injury, bleeding, discharge, and swelling, MS/Extremity: Negative for injury and deformity, Skin: Negative for injury, rash, and discoloration, Neuro: Negative for headache, weakness, numbness, tingling, and seizure, Psych: Negative for depression, anxiety, suicide ideation, homicidal ideation, and hallucinations, Allergy/Immunology: Negative for hives, rash, and allergies, Endocrine: Negative for neck swelling, polydipsia, polyuria, polyphagia, and marked weight changes, Hematologic/Lymphatic: Negative for swollen nodes, abnormal bleeding, and unusual bruising. Exam: 09:40 Constitutional: This is a well developed, well nourished patient who is awake, alert, alexa and in no acute distress. Head/Face: Normocephalic, atraumatic. Eyes: Pupils equal round and reactive to light, extra-ocular motions intact. Lids and lashes normal. Conjunctiva and sclera are non-icteric and not injected. Cornea within normal limits. Periorbital areas with no swelling, redness, or edema. ENT: Nares patent. No nasal discharge, no septal abnormalities noted. Tympanic membranes are normal and external auditory canals are clear. Oropharynx with no redness, swelling, or masses, exudates, or evidence of obstruction, uvula midline. Mucous membranes moist. Neck: Trachea midline, no thyromegaly or masses palpated, and no cervical lymphadenopathy. Supple, full range of motion without nuchal rigidity, or vertebral point tenderness. No Meningismus. Chest/axilla: Normal chest wall appearance and motion. Nontender with no deformity. No lesions are appreciated. Cardiovascular: Regular rate and rhythm with a normal S1 and S2. No gallops, murmurs, or rubs. Normal PMI, no JVD. No pulse deficits. Respiratory: Lungs have equal breath sounds bilaterally, clear to auscultation and percussion. No rales, rhonchi or wheezes noted. No increased work of breathing, no retractions or nasal flaring. Abdomen/GI: Soft, non-tender, with normal bowel sounds. No distension or tympany. No guarding or rebound. No evidence of tenderness throughout. Back: No spinal tenderness. No costovertebral tenderness. Full range of motion. Male : Normal genitalia with no discharge or lesions. Skin: Warm, dry with normal turgor. Normal color with no rashes, no lesions, and no evidence of cellulitis. MS/ Extremity: Pulses equal, no cyanosis. Neurovascular intact. Full, normal range of motion. Neuro: Awake and alert, GCS 15, oriented to person, place, time, and situation. Cranial nerves II-XII grossly intact. Motor strength 5/5 in all extremities. Sensory grossly intact. Cerebellar exam normal. Normal gait. Psych: Awake, alert, with orientation to person, place and time. Behavior, mood, and affect are within normal limits. 09:40 ECG was reviewed by the Attending Physician. Vital Signs: 08:48 BP 195 / 111; Pulse 95; Resp 18; Temp 98; Pulse Ox 95% ; bp 09:29 BP 168 / 100; Pulse 77; Resp 14 S; Pulse Ox 95% on R/A; kc6 09:53 BP 155 / 103; Pulse 69; Resp 19 S; Pulse Ox 95% on R/A; Pain 0/10; kc6 09:53 Pain Scale: Adult kc6 MDM: 08:42 Patient medically screened. alexa 08:42 [facility] 08:43 Order name: Basic Metabolic Panel; Complete Time: 09:29 [facility] 10/22 08:43 Order name: CBC with Diff; Complete Time: 09:29 [facility] 10/22 08:43 Order name: LFT's; Complete Time: 09:29 [facility] 10/22 08:43 Order name: Magnesium; Complete Time: 09:29 [facility] 10/22 08:43 Order name: NT PRO-BNP; Complete Time: 09:29 [facility] 10/22 08:43 Order name: PT-INR; Complete Time: 09:29 [facility] 10/22 08:43 Order name: Troponin HS; Complete Time: 09:29 [facility] 10/22 08:43 Order name: Urinalysis w/ reflexes; Complete Time: 09:37 [facility] 10/22 08:43 Order name: XRAY Chest (1 view); Complete Time: 09:29 [facility] 10/22 08:43 Order name: EKG; Complete Time: 08:43 [facility] 10/22 08:43 Order name: Cardiac monitoring; Complete Time: 08:55 [facility] 10/22 08:43 Order name: EKG - Nurse/Tech; Complete Time: 08:55 [facility] 10/22 08:43 Order name: IV Saline Lock; Complete Time: 08:55 [facility] 10/22 08:43 Order name: Labs collected and sent; Complete Time: : [facility] 10/22 08:43 Order name: O2 Per Protocol; Complete Time: : [facility] 10/22 08:43 Order name: O2 Sat Monitoring; Complete Time: : [facility] EC:40 Rate is 82 beats/min. Rhythm is regular. QRS Searchlight is Normal. MO interval is normal. QRS alexa interval is normal. QT interval is normal. No Q waves. T waves are Normal. No ST changes noted. Clinical impression: NSR w/ Non-specific ST/T Changes and No evidence of ischemia. Interpreted by me. Reviewed by me. Administered Medications: 09:36 Drug: Metoprolol PO 50 mg Route: PO; kc6 09:53 Follow up: Response: No adverse reaction; Blood pressure is lowered 6 Disposition Summary: 10/22/22 09:41 Discharge Ordered Location: Home alexa Problem: new alexa Symptoms: have improved alexa Condition: Stable alexa Diagnosis - Essential (primary) hypertension alexa - Anxiety disorder, unspecified alexa Followup: alexa - With: Private Physician - When: 2 - 3 days - Reason: Recheck today's complaints, Continuance of care, Re-evaluation by your physician Followup: alexa - With: Rajeev Reece MD - When: 2 - 3 days - Reason: Recheck today's complaints, Re-evaluation by your physician Discharge Instructions: - Discharge Summary Sheet alexa - Hypertension, Adult alexa - Hypertension, Adult, [id number] alexa - How to Take Your Blood Pressure, [id number] alexa - Aspirin and Your Heart alexa - Managing Your Hypertension alexa - Managing Anxiety, Adult alexa Forms: - Medication Reconciliation Form [facility] - [facility] You Letter [facility] - Antibiotic Education alexa - Prescription Opioid Use alexa - Patient Portal Instructions [facility] - Leadership Thank You Letter [facility] Prescriptions: - Toprol XL 50 mg Oral Tablet - take 1 tablet by ORAL route once daily; 20 tablet; Refills: 0, Product [facility] Selection Permitted - Xanax 1 mg Oral Tablet - take 1 tablet by ORAL route every 8 hours As needed; 20 tablet; Refills: 0, alexa Product Selection Permitted Signatures: Dispatcher [employer] Santy Lee MD MD cha Peltier, Brian, RN RN bp Campbell, Kaitlyn, RN RN kc6
--- NOTE | 2022-10-22 09:43 | ER ---
Nurse's Notes [facility] Name: Edinson Rowell Age: 67 yrs Sex: Male : 1955 Arrival Date: 10/22/2022 Time: 08:35 Bed 14 Private MD: Diagnosis: Essential (primary) hypertension;Anxiety disorder, unspecified Presentation: 10/22 08:48 Chief complaint: Patient states: ANXIETY AND LIGHT-HEADED 2/2 HTN x2 DAYS, PCP bp UNAVAILABLE, SEEN FOR SAME WEDNESDAY. Coronavirus screen: At this time, the client does not indicate any symptoms associated with coronavirus-19. Ebola Screen: No symptoms or risks identified at this time. Initial Sepsis Screen: Does the patient meet any 2 criteria? No. Patient's initial sepsis screen is negative. Does the patient have a suspected source of infection? No. Patient's initial sepsis screen is negative. Risk Assessment: Do you want to hurt yourself or someone else? Patient reports no desire to harm self or others. Onset of symptoms is unknown. 08:48 Method Of Arrival: Ambulatory bp 08:48 Acuity: KENNETH 3 bp Triage Assessment: 08:49 General: Appears in no apparent distress. Behavior is cooperative, appropriate for age, bp anxious. Pain: Denies pain. EENT: No deficits noted. Neuro: No deficits noted. Cardiovascular: No deficits noted. Respiratory: No deficits noted. GI: No signs and/or symptoms were reported involving the gastrointestinal system. : No signs and/or symptoms were reported regarding the genitourinary system. Derm: No deficits noted. Musculoskeletal: No deficits noted. Historical: - Allergies: 08:49 Codeine; bp 08:49 PENICILLINS; bp 08:49 tramadol; bp - Home Meds: 08:49 atorvastatin 10 mg Oral tablet daily [Active]; clonidine HCl 0.1 mg Oral Tablet, bp Extended Release 12 hr every day at bedtime [Active]; levothyroxine 175 mcg capsule daily [Active]; olmesartan-hydrochlorothiazide 40-25 mg Oral tablet daily [Active]; meloxicam 15 mg Oral tablet daily [Active]; cyclobenzaprine 10 mg Oral tablet TID prn muscle spasms [Active]; - PMHx: 08:49 constipation; herniated disk; Hypercholesterolemia; Hypertension; Hypothyroidism; bp osteoarthritis; Anxiety; - PSHx: 08:49 Left ankle ORIF; Left knee arthroplasty; bp - Immunization history:: Adult Immunizations up to date. - Social history:: Smoking status: Patient denies any tobacco usage or history of. Screenin:51 [facility] ED Fall Risk Assessment (Adult) History of falling in the last 3 months, bp including since admission No falls in past 3 months (0 pts). Abuse screen: Denies threats or abuse. Denies injuries from another. Nutritional screening: No deficits noted. Tuberculosis screening: No symptoms or risk factors identified. Assessment: 08:51 General: SEE TRIAGE NOTE. bp 09:28 General: Appears in no apparent distress. comfortable, Behavior is calm, cooperative, kc6 appropriate for age. Pain: Denies pain. Neuro: Level of Consciousness is awake, alert, obeys commands, Oriented to person, place, time, situation, Appropriate for age. Cardiovascular: Denies chest pain, shortness of breath, Capillary refill < 3 seconds. Respiratory: Airway is patent Trachea midline Respiratory effort is even, unlabored, Respiratory pattern is regular, symmetrical. GI: No signs and/or symptoms were reported involving the gastrointestinal system. : No signs and/or symptoms were reported regarding the genitourinary system. EENT: No signs and/or symptoms were reported regarding the EENT system. Derm: No signs and/or symptoms reported regarding the dermatologic system. Skin is intact, is healthy with good turgor, Skin is pink, warm \T\ dry. Musculoskeletal: No signs and/or symptoms reported regarding the musculoskeletal system. Circulation, motion, and sensation intact. Capillary refill < 3 seconds, Range of motion: intact in all extremities. Vital Signs: 08:48 BP 195 / 111; Pulse 95; Resp 18; Temp 98; Pulse Ox 95% ; bp 09:29 BP 168 / 100; Pulse 77; Resp 14 S; Pulse Ox 95% on R/A; kc6 09:53 BP 155 / 103; Pulse 69; Resp 19 S; Pulse Ox 95% on R/A; Pain 0/10; kc6 09:53 Pain Scale: Adult kc6 ED Course: 08:38 Patient arrived in ED. ts1 08:41 Siria Pulido RN is Primary Nurse. kc6 08:42 Santy Zheng MD is Attending Physician. alexa 08:49 Triage completed. bp 08:49 Arm band placed on. bp 08:51 Patient has correct armband on for positive identification. Bed in low position. Call bp light in reach. Side rails up X2. 08:55 Inserted saline lock: 20 gauge in right antecubital area, using aseptic technique. kc6 Blood collected. 08:55 EKG done, by ED staff. aw1 09:01 XRAY Chest (1 view) In Process Unspecified. EDMS 09:41 Rajeev Reece MD is Referral Physician. [facility] 10:06 No provider procedures requiring assistance completed. IV discontinued, intact, kc6 bleeding controlled, No redness/swelling at site. Pressure dressing applied. Administered Medications: 09:36 Drug: Metoprolol PO 50 mg Route: PO; kc6 09:53 Follow up: Response: No adverse reaction; Blood pressure is lowered kc6 Medication: 10:06 VIS not applicable for this client. kc6 Outcome: 09:41 Discharge ordered by . [facility] 10:06 Discharged to home ambulatory, with significant other. kc6 10:06 Condition: improved 10:06 Discharge instructions given to patient, Instructed on discharge instructions, follow up and referral plans. medication usage, Demonstrated understanding of instructions, follow-up care, medications, Prescriptions given X 2. 10:06 Patient left the ED. kc6 Signatures: Dispatcher [employer] EDSanty Wilson MD MD cha Peltier, Brian, RN RN Siria Modi RN RN kc6 Ayse Cortez PAS PAS ts1 Marizol Mckeon aw1
[2022-10-22] MEDS ORDERED: METOPROLOL TAR 50 MG TAB ONE (09:45)
[2022-10-22 10:26] VITALS: TEMP 98; O2SAT 95
[2022-10-22 10:29] VITALS: BP 155/103
--- NOTE | 2022-10-23 13:59 | EKG ---
Test Date: 2022-10-22 Test Time: 08:51:16 Plow Mechanic: LEDY MEASUREMENT RESULTS: Intervals: Rate: 82 WI: 190 QRSD: 126 QT: 370 QTc: 432 Gregory: P: 59 WI: 190 QRS: 51 T: 17 INTERPRETIVE STATEMENTS: Normal sinus rhythm Right bundle branch block T wave abnormality, consider lateral ischemia Abnormal ECG Compared to ECG 10/18/2022 10:56:48 T-wave abnormality now present Possible ischemia now present Atrial premature complex(es) no longer present Electronically Signed On 10-23-22 13:56:49 CDT by Rajeev Reece
== END 2022-10-22 10:06 | disposition home or self-care (01) ==
LOC: ER 08:35
DX: I10 Essential (primary) hypertension (principal); E03.9 Hypothyroidism, unspecified; Z88.0 Allergy status to penicillin; Z88.5 Allergy status to narcotic agent
CPT/HCPCS: 36415; 71045; 80048; 80076; 81003; 83735; 83880; 84484; 85025; 85610; 93005; 99284